=== PATIENT | female | born 1980 | race Caucasian/White ===

== ENCOUNTER 2016-05-31 02:42 | Emergency (ER) | payer SELFPAY ==
[2016-05-31 02:50] VITALS: TEMP 98.6
[2016-05-31] MEDS ORDERED: HYDROcodone/APAP 5-325MG 1 EACH TAB PO STA (02:56)
[2016-05-31] MEDS ORDERED: amLODIPine 5 MG TAB PO STA (02:56)
[2016-05-31] MEDS ORDERED: LISINOPRIL 10 MG TAB PO STA (02:56)
[2016-05-31] MEDS ORDERED: PENICILLIN V POTASSIUM 250 MG TAB PO STA (02:56)
--- NOTE | 2016-05-31 02:59 | ED ---
ENT HPI - General Chief complaint: ENT Stated complaint: Mouth Swelling/Hypertension Time Seen by Provider: 05/31/16 02:51 Source: patient, RN notes reviewed Mode of arrival: ambulatory Limitations: no limitations - History of Present Illness Initial comments: 36 year old female presents emergency Department with chief complaint of dental pain. Patient is to started yesterday progressively getting worse. Patient states in the left upper aspect. Patient denies fever, chills, facial swelling. Patient states that she took some ibuprofen with no relief. Patient states that she states did scheduled appointment with [facility] next week. Patient states she has NO KNOWN DRUG ALLERGIES. Patient states her blood pressure is elevated though she did not take her lisinopril 10 mg and Norvasc 5 mg at her nighttime dose. Patient denies any chest pain or shortness breath. - Related Data Home Medications Medication Instructions Recorded Confirmed ALPRAZolam [Xanax] 0.5 mg PO DAILY PRN 03/16/15 01/08/16 Norgestimate-Ethinyl Estradiol 1 tab PO DAILY 10/11/15 01/08/16 [Tri-Sprintec Tablet] Lisinopril [Zestril] 5 mg PO DAILY 01/08/16 01/08/16 Previous Rx's Medication Instructions Recorded Hydrocodone/Acetaminophen [[place] 2 each PO Q6HR PRN #20 tab 10/11/15 5-325] amLODIPine [Norvasc] 5 mg PO DAILY #7 tab 10/11/15 traMADol HCl [Ultram] 50 mg PO Q8HR PRN #12 tab 01/08/16 Hydrocodone/Acetaminophen [[place] 1 tab PO Q6HR PRN #20 tab 05/31/16 5-325] Penicillin V Potassium [Pen Vee K] 500 mg PO QID #40 tab 05/31/16 Allergies Allergy/AdvReac Type Severity Reaction Status Date / Time No Known Allergies Allergy Verified 05/31/16 02:50 Review of Systems ROS Statement: Those systems with pertinent positive or pertinent negative responses have been documented in the HPI. ROS Other: All systems not noted in ROS Statement are negative. Past Medical History Past Medical History: Hypertension Additional Past Medical History / Comment(s): back pain History of Any Multi-Drug Resistant Organisms: None Reported Past Surgical History: Cholecystectomy Past Psychological History: No Psychological Hx Reported Smoking Status: Current every day smoker Past Alcohol Use History: None Reported Past Drug Use History: None Reported General Exam Limitations: no limitations General appearance: alert, in no apparent distress Head exam: Present: atraumatic, normocephalic, normal inspection Eye exam: Present: normal appearance, PERRL, EOMI. Absent: scleral icterus, conjunctival injection, periorbital swelling ENT exam: Present: mucous membranes moist, TM's normal bilaterally, normal external ear exam. Absent: normal oropharynx (Edentulous, dental caries noted left upper no dental abscess) Neck exam: Present: normal inspection, full ROM. Absent: tenderness, meningismus, lymphadenopathy Respiratory exam: Present: normal lung sounds bilaterally. Absent: respiratory distress, wheezes, rales, rhonchi, stridor Cardiovascular Exam: Present: regular rate, normal rhythm, normal heart sounds. Absent: systolic murmur, diastolic murmur, rubs, gallop, clicks GI/Abdominal exam: Present: soft, normal bowel sounds. Absent: distended, tenderness, guarding, rebound, rigid Course Vital Signs 05/31/16 02:48 Temperature 98.6 F Pulse Rate 94 Respiratory 20 Rate Blood Pressure 207/120 O2 Sat by Pulse 100 Oximetry Medical Decision Making - Medical Decision Making 36-year-old female presented emergency department for dental pain. Patient we treated for dental infection. Patient has a follow-up appointment with [facility]. Patient we given blood pressure medication here in emergency department and will be discharged after. Return parameters were discussed. Disposition Clinical Impression: Pain, dental, Hypertension Disposition: HOME SELF-CARE Condition: Stable Instructions: Toothache (ED) Additional Instructions: Please return to the Emergency Department if symptoms worsen or any other concerns. Prescriptions: Hydrocodone/Acetaminophen [[place] 5-325] 1 tab PO Q6HR PRN #20 tab PRN Reason: Pain Penicillin V Potassium [Pen Vee K] 500 mg PO QID #40 tab Time of Disposition: 02:58
[2016-05-31 03:29] VITALS: BP 194/104; PULSE 85; RESP 18
== END 2016-05-31 03:29 | disposition home or self-care (01) ==
LOC: EC 02:42
DX: I10 Essential (primary) hypertension (principal); K08.89 Other specified disorders of teeth and supporting structures; F17.200 Nicotine dependence, unspecified, uncomplicated; Z79.3 Long term (current) use of hormonal contraceptives; Z79.899 Other long term (current) drug therapy
CPT/HCPCS: 99283

== ENCOUNTER 2016-08-25 23:14 | Emergency (ER) | payer OTHER ==
[2016-08-25 23:19] VITALS: RESP 18; TEMP 99
[2016-08-25] MEDS ORDERED: cloNIDine HCL 0.1 MG TAB PO STA (23:27)
[2016-08-25] MEDS ORDERED: KETOROLAC 60 MG/2 ML VIAL IM STA (23:27)
[2016-08-25] MEDS ORDERED: ORPHENADRINE 30 MG/ML 2 ML VIAL IM STA (23:27)
--- NOTE | 2016-08-25 23:42 | ED ---
Back Pain HPI - General Chief Complaint: Back Pain/Injury Stated Complaint: lower back pain, high BP Time Seen by Provider: 08/25/16 23:22 Source: patient, RN notes reviewed Limitations: no limitations - History of Present Illness Initial Comments: 36 yo female presents to the ER with cc of back pain. Patient does have chronic back pain. Patient also does suffer from hypertension and is currently out of one of her hypertensive medications. Patient states that she often is lifting up to 60 pounds when she picks up her son. Patient states her back pain just More intense in her at-home Motrin Tylenol was not helping so she thought that she should be seen. Patient states some pain gets so bad at all she down the legs. Patient states she has no loss of bowel or bladder. Patient states she was concerned due to the back pain so she thought that she should be evaluated.Patient denies any recent fever, chills, shortness of breath , chest pain, abdominal pain, nausea vomiting, numbness or tingling, dysuria or hematuria, constipation or diarrhea, headaches or visual changes, or any other current symptoms. - Related Data Home Medications Medication Instructions Recorded Confirmed ALPRAZolam [Xanax] 0.5 mg PO DAILY PRN 03/16/15 08/25/16 Norgestimate-Ethinyl Estradiol 1 tab PO DAILY 10/11/15 08/25/16 [Tri-Sprintec Tablet] Previous Rx's Medication Instructions Recorded amLODIPine [Norvasc] 5 mg PO DAILY #7 tab 10/11/15 Ibuprofen [Motrin] 600 mg PO Q6HR PRN #20 tab 08/26/16 Lisinopril [Zestril] 5 mg PO DAILY #30 tab 08/26/16 Orphenadrine [Norflex] 100 mg PO Q12H #10 tablet.er 08/26/16 Allergies Allergy/AdvReac Type Severity Reaction Status Date / Time No Known Allergies Allergy Verified 08/25/16 23:20 Review of Systems ROS Statement: Those systems with pertinent positive or pertinent negative responses have been documented in the HPI. ROS Other: All systems not noted in ROS Statement are negative. Past Medical History Past Medical History: Hypertension Additional Past Medical History / Comment(s): back pain History of Any Multi-Drug Resistant Organisms: None Reported Past Surgical History: Cholecystectomy Past Psychological History: No Psychological Hx Reported Smoking Status: Current every day smoker Past Alcohol Use History: None Reported Past Drug Use History: Marijuana General Exam Limitations: no limitations General appearance: alert, in no apparent distress Head exam: Present: atraumatic, normocephalic, normal inspection ENT exam: Present: normal exam, mucous membranes moist Neck exam: Present: normal inspection. Absent: tenderness, meningismus, lymphadenopathy Respiratory exam: Present: normal lung sounds bilaterally. Absent: respiratory distress, wheezes, rales, rhonchi, stridor Cardiovascular Exam: Present: regular rate, normal rhythm, normal heart sounds. Absent: systolic murmur, diastolic murmur, rubs, gallop, clicks Extremities exam: Present: normal inspection, full ROM, normal capillary refill. Absent: tenderness, pedal edema, joint swelling, calf tenderness Back exam: Present: normal inspection, full ROM. Absent: tenderness Neurological exam: Present: alert, oriented X3 Psychiatric exam: Present: normal affect, normal mood Skin exam: Present: warm, dry, intact, normal color. Absent: rash Course Vital Signs 08/25/16 08/25/16 08/26/16 23:18 23:59 00:34 Temperature 99 F Pulse Rate 89 88 87 Respiratory 18 18 18 Rate Blood Pressure 206/111 167/127 150/86 O2 Sat by Pulse 98 97 97 Oximetry Medical Decision Making - Medical Decision Making 36-year-old female emergency Department chief complaint of back pain. At this time patient's x-ray does not show any new acute process. She does state this is not like her chronic abdominal pain exacerbated by lifting her child. This time we discussed that we'll start her on Motrin and muscle relaxers for the pain. Patient was also found to be hypertensive at this time she did run out of one of her blood pressure medications. We did refill this for her. He did discuss close follow-up with her doctor and return parameters. Patient stated that she understood and all questions have been answered. She will be discharged home. - Radiology Data Radiology results: report reviewed, image reviewed Disposition Clinical Impression: Strain of lumbar region, Hypertension Disposition: HOME SELF-CARE Condition: Stable Instructions: Acute Low Back Pain (ED), Hypertension (ED) Additional Instructions: Please use medication as discussed. Please follow up with family doctor if symptoms have not improved over the next two days. Please return to the emergency room if your symptoms increase or worsen or for any other concerns. Prescriptions: Ibuprofen [Motrin] 600 mg PO Q6HR PRN #20 tab PRN Reason: Pain Lisinopril [Zestril] 5 mg PO DAILY #30 tab Orphenadrine [Norflex] 100 mg PO Q12H #10 tablet.er Referrals: Jonny Quinones DO [Primary Care Provider] - 1-2 days Time of Disposition: 00:50
--- NOTE | 2016-08-26 00:30 | XR ---
EXAM: XR Lumbar Spine, 2 or 3 Views CLINICAL HISTORY: Reason: Pain TECHNIQUE: Frontal and lateral views of the lumbar spine. COMPARISON: No relevant prior studies available. FINDINGS: Vertebrae: Unremarkable. No acute fracture. Normal alignment. Disc spaces: No acute findings. No significant narrowing. Soft tissues: Unremarkable. Other findings: Prior cholecystectomy. IMPRESSION: No acute or healing fracture or malalignment.
[2016-08-26 00:35] VITALS: BP 150/86; PULSE 87
== END 2016-08-26 00:57 | disposition home or self-care (01) ==
LOC: EC 23:14
DX: S39.012A Strain of muscle, fascia and tendon of lower back, initial encounter (principal); I10 Essential (primary) hypertension; F17.200 Nicotine dependence, unspecified, uncomplicated; Z79.3 Long term (current) use of hormonal contraceptives; X50.9XXA Other and unspecified overexertion or strenuous movements or postures, initial encounter
CPT/HCPCS: 72100; 99283; 96372 ×2; J2360; J1885

== ENCOUNTER 2016-09-25 09:41 | Emergency (ER) | payer SELFPAY ==
[2016-09-25 09:44] VITALS: BP 187/103; PULSE 94; RESP 20; TEMP 97.4
[2016-09-25] MEDS ORDERED: KETOROLAC 60 MG/2 ML VIAL IM STA (10:29)
--- NOTE | 2016-09-25 10:32 | ED ---
General Adult HPI - General Chief complaint: Back Pain/Injury Stated complaint: Oral and Back Pain Source: patient Mode of arrival: ambulatory Limitations: no limitations - History of Present Illness Initial comments: 36 yo female presenting for evaluation of back pain and tooth #13 pain. She states the back pain is chronic and unchanged but after losing her insurance she was unable to go back to her primary care physician and get another prescription for [place] which had previously been controlling her exacerbations. She states there is a presumed diagnosis of fibromyalgia but nothing definitive at this time. She denies any preceding trauma, illness, lower extremity weakness, saddle anesthesia, urinary incontinence/retention, or bowel incontinence. She also has a second complaint of tooth #13 pain after eating yesterday. She states that the tooth is fractured about one month ago but yesterday while eating a piece of food hit just the right spot causing significant pain. She states there was not a second fracture but that it was just very painful to that spot. Due to her lack of insurance she is also been unable to follow-up with a dentist as well. Denies any swelling, fevers, chills , fluctuant masses. - Related Data Home Medications Medication Instructions Recorded Confirmed ALPRAZolam [Xanax] 0.5 mg PO DAILY PRN 03/16/15 09/25/16 Norgestimate-Ethinyl Estradiol 1 tab PO DAILY 10/11/15 09/25/16 [Tri-Sprintec Tablet] Previous Rx's Medication Instructions Recorded amLODIPine [Norvasc] 5 mg PO DAILY #7 tab 10/11/15 Ibuprofen [Motrin] 600 mg PO Q6HR PRN #20 tab 08/26/16 Lisinopril [Zestril] 5 mg PO DAILY #30 tab 08/26/16 Diazepam [Valium] 5 mg PO BID #6 tab 09/25/16 HYDROcodone/APAP 5-325MG [[place] 1 - 2 tab PO Q12HR PRN #10 tab 09/25/16 5-325] Allergies Allergy/AdvReac Type Severity Reaction Status Date / Time No Known Allergies Allergy Verified 09/25/16 10:30 Review of Systems ROS Statement: Those systems with pertinent positive or pertinent negative responses have been documented in the HPI. ROS Other: All systems not noted in ROS Statement are negative. Constitutional: Denies: fever, chills Eyes: Denies: eye pain, eye discharge, vision change ENT: Reports: dental pain. Denies: ear pain, throat pain, hearing loss, epistaxis Respiratory: Denies: cough, dyspnea, wheezes, hemoptysis Cardiovascular: Denies: chest pain, palpitations Endocrine: Denies: fatigue, polydipsia, polyuria Gastrointestinal: Denies: abdominal pain, nausea, vomiting, diarrhea, constipation, hematemesis, melena, hematochezia Genitourinary: Denies: urgency, dysuria, frequency Musculoskeletal: Reports: back pain. Denies: joint swelling, arthralgia, myalgia Skin: Denies: rash, lesions Neurological: Denies: headache, weakness Psychiatric: Denies: anxiety, depression Hematological/Lymphatic: Denies: easy bleeding, easy bruising Past Medical History Past Medical History: Hypertension Additional Past Medical History / Comment(s): back pain History of Any Multi-Drug Resistant Organisms: None Reported Past Surgical History: Cholecystectomy Past Psychological History: No Psychological Hx Reported Smoking Status: Current every day smoker Past Alcohol Use History: None Reported Past Drug Use History: Marijuana General Exam Limitations: no limitations General appearance: alert, in no apparent distress Head exam: Present: atraumatic, normocephalic, normal inspection Eye exam: Present: normal appearance, PERRL, EOMI. Absent: scleral icterus, conjunctival injection, periorbital swelling ENT exam: Present: mucous membranes moist, other (poor dentition throughout; tooth #13 fracture, stable without purulence, swelling, or fluctuant mass) Neck exam: Present: normal inspection. Absent: tenderness, meningismus, lymphadenopathy Respiratory exam: Present: normal lung sounds bilaterally. Absent: respiratory distress, wheezes, rales, rhonchi, stridor Cardiovascular Exam: Present: regular rate, normal rhythm, normal heart sounds. Absent: systolic murmur, diastolic murmur, rubs, gallop, clicks GI/Abdominal exam: Present: soft, normal bowel sounds. Absent: distended, tenderness, guarding, rebound, rigid Rectal exam: Present: deferred Extremities exam: Present: normal inspection, full ROM, normal capillary refill. Absent: tenderness, pedal edema, joint swelling, calf tenderness Back exam: Present: full ROM, tenderness, paraspinal tenderness. Absent: CVA tenderness (R), CVA tenderness (L), vertebral tenderness Neurological exam: Present: alert, oriented X3, CN II-XII intact Psychiatric exam: Present: normal affect, normal mood Skin exam: Present: warm, dry, intact, normal color. Absent: rash Course Vital Signs 09/25/16 09:42 Temperature 97.4 F L Pulse Rate 94 Respiratory 20 Rate Blood Pressure 187/103 O2 Sat by Pulse 99 Oximetry Medical Decision Making - Medical Decision Making 36-year-old female presenting for evaluation of acute on chronic low back pain and tooth #13 dental pain. The back pain is consistent with her chronic levels pain although it slightly worse. She used to have [place] to control his pain but lost her insurance and no longer is able to get the [place]. On physical examination the back reveals no dermatologic abnormalities and she has full range of motion. Palpation causes mild pain. Given that there is no traumatic etiology to this and there are no other significant findings we'll provide pain control with follow-up with her primary care physician when she gets her insurance back which she states will be soon. Her second complaint of tooth #13 pain has been ongoing for the last month when the initial fracture occurred. She states it has been bothering her lately until she ate something last night which causes pain to the fracture site. She' s been unable to eat since then. On physical examination there is no fluctuant mass, purulent drainage from the fractured tooth, or surrounding swelling or erythema. Without any signs of infection we'll withhold antibiotics at this time. We'll provide pain control and instructed patient to follow-up with a dentist as she gets her insurance which she states will be very similar. Plans for both complaints were discussed with the patient. She acknowledged an understanding of all instructions given and agreed with this plan of care. Disposition Clinical Impression: Mechanical back pain, Tooth pain Disposition: HOME SELF-CARE Condition: Stable Instructions: Acute Low Back Pain (ED), Toothache (ED) Prescriptions: Diazepam [Valium] 5 mg PO BID #6 tab HYDROcodone/APAP 5-325MG [[place] 5-325] 1 - 2 tab PO Q12HR PRN #10 tab PRN Reason: Analgesia Referrals: Jonny Quinones DO [Primary Care Provider] - 1-2 days Time of Disposition: 10:32
== END 2016-09-25 10:42 | disposition home or self-care (01) ==
LOC: EC 09:41
DX: M54.5 Low back pain (principal); K08.89 Other specified disorders of teeth and supporting structures; F17.200 Nicotine dependence, unspecified, uncomplicated; Z79.3 Long term (current) use of hormonal contraceptives
CPT/HCPCS: 99283; 96372; J1885

== ENCOUNTER 2016-10-01 16:44 | Emergency (ER) | payer OTHER ==
[2016-10-01 16:52] VITALS: BP 186/98; PULSE 103; RESP 17; TEMP 97.6
[2016-10-01] MEDS ORDERED: HYDROcodone/APAP 5-325MG 1 EACH TAB PO STA (17:05)
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
== END 2016-10-01 17:20 | disposition home or self-care (01) ==
LOC: EC 16:44
DX: G89.29 Other chronic pain (principal); M54.5 Low back pain; F17.200 Nicotine dependence, unspecified, uncomplicated; Z79.3 Long term (current) use of hormonal contraceptives
CPT/HCPCS: 99283

== ENCOUNTER 2016-10-30 21:39 | Emergency (ER) | payer OTHER ==
[2016-10-30 21:48] VITALS: BP 163/87; PULSE 106; RESP 18; TEMP 98.1
[2016-10-30] MEDS ORDERED: PENICILLIN VK 500MG STARTER 4 TAB BTL PO STA (22:04)
[2016-10-30] MEDS ORDERED: ACET/COD 300 MG/30 MG STARTER PACK 6 TAB BTL PO STA (22:04)
--- NOTE | 2016-10-30 22:06 | ED ---
General Adult HPI - General Chief complaint: Dental/Oral Stated complaint: dental pain Time Seen by Provider: 10/30/16 21:50 Source: patient, RN notes reviewed Mode of arrival: ambulatory Limitations: no limitations - History of Present Illness Initial comments: Patient 36-year-old female who presents emergency room today with a chief complaint of possible dental abscess. She does admit that over the last few days she's been experiencing some pain to the left upper gumline. States more recently over the last day experiencing some pain now to the right lower side of the gumline. She states she can feel bump in this area. Denies any drainage or discharge. Sensation did have an abscess recently and she was on antibiotics of amoxicillin. She states she had some leftover amoxicillin which she began taking once again. Patient states she has been trying to get into the dentist but is saving up money. Patient denies any other complaints or associated symptoms currently. Patient denies any recent fever, chills, shortness of breath, chest pain, back pain, abdominal pain, nausea or vomiting, numbness or tingling, dysuria or hematuria, constipation or diarrhea, headaches or visual changes, or any other complaints. - Related Data Home Medications Medication Instructions Recorded Confirmed ALPRAZolam [Xanax] 0.5 mg PO DAILY PRN 03/16/15 09/25/16 Norgestimate-Ethinyl Estradiol 1 tab PO DAILY 10/11/15 09/25/16 [Tri-Sprintec Tablet] Previous Rx's Medication Instructions Recorded amLODIPine [Norvasc] 5 mg PO DAILY #7 tab 10/11/15 Ibuprofen [Motrin] 600 mg PO Q6HR PRN #20 tab 08/26/16 Lisinopril [Zestril] 5 mg PO DAILY #30 tab 08/26/16 Diazepam [Valium] 5 mg PO BID #6 tab 09/25/16 HYDROcodone/APAP 5-325MG [[place] 1 - 2 tab PO Q12HR PRN #10 tab 09/25/16 5-325] Penicillin V Potassium [Pen Vee K] 500 mg PO QID 10 Days 10/30/16 Allergies Allergy/AdvReac Type Severity Reaction Status Date / Time No Known Allergies Allergy Verified 10/30/16 21:48 Review of Systems ROS Statement: Those systems with pertinent positive or pertinent negative responses have been documented in the HPI. ROS Other: All systems not noted in ROS Statement are negative. Past Medical History Past Medical History: Hypertension Additional Past Medical History / Comment(s): back pain History of Any Multi-Drug Resistant Organisms: None Reported Past Surgical History: Cholecystectomy Past Psychological History: No Psychological Hx Reported Smoking Status: Current some day smoker Past Alcohol Use History: Rare Past Drug Use History: Marijuana General Exam - General Exam Comments Initial Comments: General: The patient is awake and alert, in no distress, and does not appear acutely ill. Eye: Pupils are equal, round and reactive to light, extra-ocular movements are intact. No nystagmus. There is normal conjunctiva bilaterally. No signs of icterus. Ears, nose, mouth and throat: There are moist mucous membranes and no oral lesions. Patient tender gumline and left upper side over tooth #13 and 14. Obvious abscess in this area. Patient does have abscess visualized at gumline of tooth #29. Uvula midline. Swallows without difficulty. Neck: The neck is supple, there is no tenderness or JVD. Cardiovascular: There is a regular rate and rhythm. No murmur, rub or gallop is appreciated. Respiratory: Lungs are clear to auscultation, respirations are non-labored, breath sounds are equal. No wheezes, stridor, rales, or rhonchi. Musculoskeletal: Normal ROM, no tenderness. Strength 5/5. Sensation intact. Pulses equal bilaterally 2+. Neurological: A&O x 3. CN II-XII intact, There are no obvious motor or sensory deficits. Coordination appears grossly intact. Speech is normal. Skin: Skin is warm and dry and no rashes or lesions are noted. Psychiatric: Cooperative, appropriate mood & affect, normal judgment. Limitations: no limitations Course Vital Signs 10/30/16 21:45 Temperature 98.1 F Pulse Rate 106 H Respiratory 18 Rate Blood Pressure 163/87 O2 Sat by Pulse 100 Oximetry Medical Decision Making - Medical Decision Making 18-gauge needle was used to make an incision of the abscess over the gumline of tooth #29 are mild drainage removed. Patient tolerated procedure well. Patient is advised to use Listerine or salt water gargles. Advised to use a tea bag in the gumline of these areas to help draw out more of the bacteria. Patient advised follow-up with dentist over the next 2 days. Will be continued on antibiotics of penicillin. Disposition Clinical Impression: Dental abscess Disposition: HOME SELF-CARE Condition: Good Instructions: Dental Abscess (ED) Additional Instructions: Please use antibiotic as prescribed. Please follow-up dentist over the next 2 days. Please use Listerine or salt water gargles as discussed. Please use teabag in the gumline to help draw out more bacteria. Please return to emergency room if any symptoms increase or worsen or for any other concerns. Prescriptions: Penicillin V Potassium [Pen Vee K] 500 mg PO QID 10 Days Referrals: Feliciano Wallis MD [Primary Care Provider] - 1-2 days Time of Disposition: 22:07
== END 2016-10-30 22:17 | disposition home or self-care (01) ==
LOC: EC 21:39
DX: K04.7 Periapical abscess without sinus (principal); F17.200 Nicotine dependence, unspecified, uncomplicated; Z79.899 Other long term (current) drug therapy
CPT/HCPCS: 41800; 99282

== ENCOUNTER 2016-12-08 19:37 | Emergency (ER) | payer SELFPAY ==
[2016-12-08] MEDS ORDERED: KETOROLAC 60 MG/2 ML VIAL IVP STA (20:00)
[2016-12-08] MEDS ORDERED: DIAZEPAM 5 MG/ML 2 ML SYRINGE IVP STA (20:00)
--- NOTE | 2016-12-08 20:04 | ED ---
General Adult HPI - General Chief complaint: Dizziness Stated complaint: Headache/body ache Time Seen by Provider: 12/08/16 19:45 Source: patient, RN notes reviewed Mode of arrival: ambulatory Limitations: no limitations - History of Present Illness Initial comments: This is a 36-year-old female who presents emergency department with past history significant for some bulging disks in her neck as well as fibromyalgia. Patient states today while at work she turned her head quickly to one side and she started having right-sided neck pain. Patient states she's had a headache all day but since she's had the neck pain seems to make the headache a little bit worse. Patient states there is nothing abnormal about this headache compared any previous headaches she's had. Patient denies any numbness weakness. Patient denies any central neck pain. Patient denies any blunt or direct trauma to the neck. Patient denies any other problems at this time. - Related Data Home Medications Medication Instructions Recorded Confirmed Gabapentin [Neurontin] 200 mg PO BID 12/08/16 12/08/16 Previous Rx's Medication Instructions Recorded amLODIPine [Norvasc] 5 mg PO DAILY #7 tab 10/11/15 Ibuprofen [Motrin] 600 mg PO Q6HR PRN #20 tab 08/26/16 Lisinopril [Zestril] 5 mg PO DAILY #30 tab 08/26/16 Cyclobenzaprine [Flexeril] 10 mg PO TID #20 tab 12/08/16 Ibuprofen [Motrin] 600 mg PO Q6HR PRN #20 tab 12/08/16 Allergies Allergy/AdvReac Type Severity Reaction Status Date / Time No Known Allergies Allergy Verified 12/08/16 19:51 Review of Systems ROS Statement: Those systems with pertinent positive or pertinent negative responses have been documented in the HPI. ROS Other: All systems not noted in ROS Statement are negative. Past Medical History Past Medical History: Hypertension Additional Past Medical History / Comment(s): back pain, migraines History of Any Multi-Drug Resistant Organisms: None Reported Past Surgical History: Cholecystectomy Past Psychological History: Anxiety Smoking Status: Current every day smoker Past Alcohol Use History: Rare Past Drug Use History: Marijuana General Exam - General Exam Comments Initial Comments: GENERAL: Patient is well-developed and well-nourished. Patient is nontoxic and well- hydrated and is in mild distress. ENT: Neck is soft and supple. No significant lymphadenopathy is noted. Oropharynx is clear. Moist mucous membranes. Neck has full range of motion without eliciting any pain. There is no thyroid enlargement and no masses were felt. EYES: The sclera were anicteric and conjunctiva were pink and moist. Extraocular movements were intact and pupils were equal round and reactive to light. Eyelids were unremarkable. Patient states her eyes are sensitive to light however I shined a bright light in her eyes to test extraocular motion she does not flinch. PULMONARY: Unlabored respirations. Good breath sounds bilaterally. No audible rales rhonchi or wheezing was noted. CARDIOVASCULAR: There is a regular rate and rhythm without any murmurs gallops or rubs. ABDOMEN: Soft and nontender with normal bowel sounds. No palpable organomegaly was noted. There is no palpable pulsatile mass. SKIN: Skin is clear with no lesions or rashes and otherwise unremarkable. NEUROLOGIC: Patient is alert and oriented x3. Cranial nerves II through XII are grossly intact. Motor and sensory are also intact. Normal speech, volume and content. Symmetrical smile. MUSCULOSKELETAL: Normal extremities with adequate strength and full range of motion. LYMPHATICS: No significant lymphadenopathy is noted PSYCHIATRIC: Normal psychiatric evaluation. Limitations: no limitations Course Vital Signs 12/08/16 12/08/16 12/08/16 19:43 20:00 20:32 Temperature 97.8 F 97.9 F Pulse Rate 88 99 78 Respiratory 16 18 18 Rate Blood Pressure 165/87 166/102 132/76 O2 Sat by Pulse 99 98 100 Oximetry Medical Decision Making - Medical Decision Making I went back to reevaluate the patient and the patient feeling considerably better. Patient blood pressure returned to normal. Patient stated her headache was much improved. And she felt as though her neck pain was improving but not back to normal yet. Disposition Clinical Impression: Acute cervical myofascial strain Disposition: HOME SELF-CARE Condition: Good Instructions: Cervical Strain (ED) Prescriptions: Cyclobenzaprine [Flexeril] 10 mg PO TID #20 tab Ibuprofen [Motrin] 600 mg PO Q6HR PRN #20 tab PRN Reason: For pain Referrals: Feliciano Wallis MD [Primary Care Provider] - 1-2 days Time of Disposition: 21:02
[2016-12-08 20:07] VITALS: TEMP 97.9
[2016-12-08 21:34] VITALS: BP 153/87; PULSE 79; RESP 16
== END 2016-12-08 22:14 | disposition home or self-care (01) ==
LOC: EC 19:37
DX: S16.1XXA Strain of muscle, fascia and tendon at neck level, initial encounter (principal); R51 Headache; R42 Dizziness and giddiness; F41.9 Anxiety disorder, unspecified; F17.200 Nicotine dependence, unspecified, uncomplicated; Z79.899 Other long term (current) drug therapy; X58.XXXA Exposure to other specified factors, initial encounter
CPT/HCPCS: 99283; 96374; 96375; J3360; J1885

== ENCOUNTER 2017-01-29 14:36 | Emergency (ER) | payer OTHER ==
[2017-01-29 14:45] VITALS: BP 147/80; PULSE 105; RESP 18; TEMP 97.9
--- NOTE | 2017-01-29 14:57 | ED ---
General Adult HPI - General Chief complaint: Dental/Oral Stated complaint: Dental Time Seen by Provider: 01/29/17 14:46 Source: patient, RN notes reviewed Mode of arrival: ambulatory Limitations: no limitations - History of Present Illness Initial comments: 37-year-old female presents to the emergency department with a chief complaint of dental abscess. Patient states this started yesterday. She states she has lower jaw pain and she doesn't abscess above her teeth. Patient denies any fever or chills. She states she has not been to the dentist. Patient was concerned due to her pain and the bottom so she thought that she should be evaluated. Patient denies any other symptoms at this time.Patient denies any recent fever, chills, shortness of breath, chest pain, back pain, abdominal pain , nausea vomiting, numbness or tingling, dysuria or hematuria, constipation or diarrhea, headaches or visual changes, or any other current symptoms. - Related Data Home Medications Medication Instructions Recorded Confirmed Gabapentin [Neurontin] 200 mg PO BID 12/08/16 12/08/16 Previous Rx's Medication Instructions Recorded amLODIPine [Norvasc] 5 mg PO DAILY #7 tab 10/11/15 Ibuprofen [Motrin] 600 mg PO Q6HR PRN #20 tab 08/26/16 Lisinopril [Zestril] 5 mg PO DAILY #30 tab 08/26/16 Cyclobenzaprine [Flexeril] 10 mg PO TID #20 tab 12/08/16 Ibuprofen [Motrin] 600 mg PO Q6HR PRN #20 tab 12/08/16 Penicillin V Potassium [Pen Vee K] 500 mg PO TID #40 tab 01/29/17 traMADol HCl [Ultram] 50 mg PO Q6H PRN #20 tab 01/29/17 Allergies Allergy/AdvReac Type Severity Reaction Status Date / Time No Known Allergies Allergy Verified 01/29/17 14:45 Review of Systems ROS Statement: Those systems with pertinent positive or pertinent negative responses have been documented in the HPI. ROS Other: All systems not noted in ROS Statement are negative. Past Medical History Past Medical History: Hypertension Additional Past Medical History / Comment(s): back pain, migraines History of Any Multi-Drug Resistant Organisms: None Reported Past Surgical History: Cholecystectomy Past Psychological History: Anxiety Smoking Status: Current every day smoker Past Alcohol Use History: Rare Past Drug Use History: Marijuana General Exam Limitations: no limitations General appearance: alert, in no apparent distress Head exam: Present: atraumatic, normocephalic, normal inspection Eye exam: Present: normal appearance, PERRL, EOMI. Absent: scleral icterus, conjunctival injection, periorbital swelling ENT exam: Present: normal exam, mucous membranes moist, other (dental abscess above tooth number 11) Neck exam: Present: normal inspection. Absent: tenderness, meningismus, lymphadenopathy Respiratory exam: Present: normal lung sounds bilaterally. Absent: respiratory distress, wheezes, rales, rhonchi, stridor Cardiovascular Exam: Present: regular rate, normal rhythm, normal heart sounds. Absent: systolic murmur, diastolic murmur, rubs, gallop, clicks Neurological exam: Present: alert, oriented X3 Psychiatric exam: Present: normal affect, normal mood Skin exam: Present: warm, dry, intact, normal color. Absent: rash Course Vital Signs 01/29/17 14:42 Temperature 97.9 F Pulse Rate 105 H Respiratory 18 Rate Blood Pressure 147/80 O2 Sat by Pulse 100 Oximetry Procedures - Procedures Initial comment: 18-gauge needle was used to excise the dental abscess. Some purulent material was drained. Patient tolerated well. Medical Decision Making - Medical Decision Making 37-year-old female presents emergency department with a chief complaint of what appears to be dental abscess. Patient underwent an I&D of the area. We discussed follow-up return parameters outpatient family's questions. They state [facility] management this plan. All questions have been answered. They will be discharged. Disposition Clinical Impression: Dental abscess Disposition: HOME SELF-CARE Condition: Stable Instructions: Dental Abscess (ED) Additional Instructions: Please use medication as discussed. Please follow up with family doctor if symptoms have not improved over the next two days. Please return to the emergency room if your symptoms increase or worsen or for any other concerns. [facility] [place] [address] [phone] (existing clients only) For new clients: [phone] 1st consult: $50 (includes Xrays) Usually 30% less then private dentist for visits after. [employer] Have to pay $50 for Xrays anmd rest is covered. [phone] Prescriptions: Penicillin V Potassium [Pen Vee K] 500 mg PO TID #40 tab traMADol HCl [Ultram] 50 mg PO Q6H PRN #20 tab PRN Reason: Pain Referrals: Eli Bar MD [STAFF PHYSICIAN] - 1-2 days Time of Disposition: 14:57
== END 2017-01-29 15:02 | disposition home or self-care (01) ==
LOC: EC 14:36
DX: K04.7 Periapical abscess without sinus (principal); F41.9 Anxiety disorder, unspecified; F17.200 Nicotine dependence, unspecified, uncomplicated; Z79.899 Other long term (current) drug therapy
CPT/HCPCS: 41800; 99282

== ENCOUNTER 2017-03-07 14:21 | Emergency (ER) | payer OTHER ==
[2017-03-07 14:30] VITALS: TEMP 98
[2017-03-07] MEDS ORDERED: KETOROLAC 30 MG/ML 1 ML VIAL IM STA (15:01)
[2017-03-07] MEDS ORDERED: ORPHENADRINE 30 MG/ML 2 ML VIAL IM STA (15:01)
--- NOTE | 2017-03-07 15:21 | ED ---
General Adult HPI - General Chief complaint: Back Pain/Injury Stated complaint: Back Pain Time Seen by Provider: 03/07/17 14:46 Source: patient, RN notes reviewed Mode of arrival: ambulatory Limitations: no limitations - History of Present Illness Initial comments: This is a 37-year-old female who presents to the emergency department with chief complaint of chronic back pain. Patient states that she has been without her medications for 1 week. She states she lost her insurance with Medicaid. Patient states that she normally takes [place] and gabapentin. She also reports that she takes amlodipine and lisinopril for hypertension. Patient reports she is having a current flare of low back and neck pain. She denies any new injury or trauma. She denies saddle paresthesias or loss of bladder or bowel function. Denies fever, chills, chest pain, shortness of breath, abdominal pain , nausea or vomiting, constipation or diarrhea, dysuria or hematuria, numbness or tingling, headache or vision changes. - Related Data Home Medications Medication Instructions Recorded Confirmed Gabapentin [Neurontin] 200 mg PO BID 12/08/16 12/08/16 Previous Rx's Medication Instructions Recorded amLODIPine [Norvasc] 5 mg PO DAILY #7 tab 10/11/15 Ibuprofen [Motrin] 600 mg PO Q6HR PRN #20 tab 08/26/16 Lisinopril [Zestril] 5 mg PO DAILY #30 tab 08/26/16 Cyclobenzaprine [Flexeril] 10 mg PO TID #20 tab 12/08/16 Ibuprofen [Motrin] 600 mg PO Q6HR PRN #20 tab 12/08/16 Penicillin V Potassium [Pen Vee K] 500 mg PO TID #40 tab 01/29/17 Lisinopril [Zestril] 5 mg PO DAILY #14 tab 03/07/17 amLODIPine [Norvasc] 5 mg PO DAILY #14 tab 03/07/17 traMADol HCl [Ultram] 50 mg PO Q6H PRN #20 tab 03/07/17 Allergies Allergy/AdvReac Type Severity Reaction Status Date / Time No Known Allergies Allergy Verified 03/07/17 14:30 Review of Systems ROS Statement: Those systems with pertinent positive or pertinent negative responses have been documented in the HPI. ROS Other: All systems not noted in ROS Statement are negative. Past Medical History Past Medical History: Hypertension Additional Past Medical History / Comment(s): back pain, migraines History of Any Multi-Drug Resistant Organisms: None Reported Past Surgical History: Cholecystectomy Past Psychological History: Anxiety Smoking Status: Current every day smoker Past Alcohol Use History: Rare Past Drug Use History: Marijuana General Exam - General Exam Comments Initial Comments: General: Awake and alert, well-developed; in no apparent distress. HEENT: Head atraumatic, normocephalic. Pupils are equal, round and reactive to light. Extraocular movements intact. Dentition is poor. Neck: Supple. Normal ROM. Tenderness on palpation of muscles along cervical spine. No bony point tenderness. Cardiovascular: Regular rate and rhythm. No murmurs, rubs or gallops. Chest symmetrical. Respiratory: Lungs clear to auscultation bilaterally. No wheezes, rales or rhonchi. Normal respiratory effort with no use of accessory muscles. Musculoskeletal: Patient is ambulating normally. There is tenderness on palpation of lumbar paraspinous muscles. No bony point tenderness. Sensation is intact. Patient has normal range of motion in cervical, thoracic and lumbar spine. Skin: [place], warm and dry without rashes or lesions. Neurological: Alert and oriented x3. CN II-XII grossly intact. Speech is fluent and answers are appropriate. No focal neuro deficits. Psychiatric: Normal mood and affect. No overt signs of depression or anxiety noted. Limitations: no limitations Course Vital Signs 03/07/17 14:28 Temperature 98.0 F Pulse Rate 102 H Respiratory 20 Rate Blood Pressure 151/83 O2 Sat by Pulse 99 Oximetry Medical Decision Making - Medical Decision Making This is a 37-year-old female who presents with chronic back pain. Patient requests refill for her medications. Patient was given Toradol and Norflex while in the emergency department. Patient will be discharged home with refills of only her hypertensive medications. Patient's blood pressure while in the emergency department was 151/83. Patient was informed she must seek care from primary care provider for refills of narcotics but I will provide her with a few days worth of Tramadol, which patient states is helpful as well. Patient is in no acute distress at this time. She is in agreement with the plan and voiced understanding. All questions were answered. Disposition Clinical Impression: Chronic back pain Disposition: HOME SELF-CARE Condition: Good Instructions: Chronic Back Pain (ED) Additional Instructions: Please take medications as prescribed. Please follow up with primary care provider within 1-2 days. Return to emergency department if symptoms should worsen or any concerns arise. Prescriptions: amLODIPine [Norvasc] 5 mg PO DAILY #14 tab Lisinopril [Zestril] 5 mg PO DAILY #14 tab traMADol HCl [Ultram] 50 mg PO Q6H PRN #20 tab PRN Reason: Pain Referrals: None,Stated [Primary Care Provider] - 1-2 days Time of Disposition: 15:24
[2017-03-07 15:33] VITALS: BP 135/90; PULSE 90; RESP 16
== END 2017-03-07 15:32 | disposition home or self-care (01) ==
LOC: EC 14:21
DX: G89.29 Other chronic pain (principal); M54.5 Low back pain; M54.2 Cervicalgia; F17.200 Nicotine dependence, unspecified, uncomplicated; Z79.899 Other long term (current) drug therapy
CPT/HCPCS: 99283; 96372 ×2; J2360; J1885

== ENCOUNTER 2017-04-27 07:07 | Emergency (ER) | payer OTHER ==
[2017-04-27 07:18] VITALS: BP 144/81
[2017-04-27] MEDS ORDERED: IBUPROFEN 800 MG TAB PO STA (08:19)
[2017-04-27] MEDS ORDERED: Acetaminophen-Codeine 300-30mg TAB PO STA (08:19)
[2017-04-27] MEDS ORDERED: ACETAMINOPHEN TAB 325 MG TAB PO STA (08:19)
[2017-04-27] MEDS ORDERED: FLUTICASONE 50MCG/SPRAY NASAL 16GM EA NOSTRIL STA (08:19)
--- NOTE | 2017-04-27 08:19 | ED ---
General Adult HPI - General Chief complaint: Upper Respiratory Infection Stated complaint: SOB/Cold Time Seen by Provider: 04/27/17 07:28 Source: patient, RN notes reviewed, old records reviewed Mode of arrival: ambulatory Limitations: no limitations - History of Present Illness Initial comments: This is a 37-year-old female to the ER for evaluation today. Patient comes in for female feelings of getting sick. Patient states she medical problems and medical history of getting chronically sick. Patient's cough runny nose congestion. Feels like she can't cough up mucus. Patient is a smoker no travel history no sick contacts or recent hospitalizations. Patient hasn't some body aches but also states that she does have fibromyalgia. No modifying factors for pain, no [id number] medications attempted. Patient states all members of her family are sick - Related Data Home Medications Medication Instructions Recorded Confirmed Gabapentin [Neurontin] 200 mg PO BID 12/08/16 12/08/16 Previous Rx's Medication Instructions Recorded amLODIPine [Norvasc] 5 mg PO DAILY #7 tab 10/11/15 Ibuprofen [Motrin] 600 mg PO Q6HR PRN #20 tab 08/26/16 Lisinopril [Zestril] 5 mg PO DAILY #30 tab 08/26/16 Cyclobenzaprine [Flexeril] 10 mg PO TID #20 tab 12/08/16 Ibuprofen [Motrin] 600 mg PO Q6HR PRN #20 tab 12/08/16 Penicillin V Potassium [Pen Vee K] 500 mg PO TID #40 tab 01/29/17 Lisinopril [Zestril] 5 mg PO DAILY #14 tab 03/07/17 amLODIPine [Norvasc] 5 mg PO DAILY #14 tab 03/07/17 traMADol HCl [Ultram] 50 mg PO Q6H PRN #20 tab 03/07/17 Amoxic-Pot Clav 875-125Mg 1 tab PO Q12HR #20 tablet 04/27/17 [Augmentin 875-125] Benzonatate [Tessalon Perles] 100 mg PO TID PRN #15 capsule 04/27/17 Levofloxacin [Levaquin] 750 mg PO DAILY #7 tab 04/27/17 Allergies Allergy/AdvReac Type Severity Reaction Status Date / Time No Known Allergies Allergy Verified 04/27/17 07:17 Review of Systems ROS Statement: Those systems with pertinent positive or pertinent negative responses have been documented in the HPI. ROS Other: All systems not noted in ROS Statement are negative. Past Medical History Past Medical History: Hypertension Additional Past Medical History / Comment(s): back pain, migraines History of Any Multi-Drug Resistant Organisms: None Reported Past Surgical History: Cholecystectomy Past Psychological History: Anxiety Smoking Status: Current every day smoker Past Alcohol Use History: Rare Past Drug Use History: Marijuana General Exam Limitations: no limitations General appearance: alert, in no apparent distress Head exam: Present: atraumatic, normocephalic, normal inspection Eye exam: Present: normal appearance, PERRL, EOMI. Absent: scleral icterus, conjunctival injection, periorbital swelling ENT exam: Present: mucous membranes moist. Absent: normal exam (Bilateral rhinitis) Neck exam: Present: normal inspection. Absent: tenderness, meningismus, lymphadenopathy Respiratory exam: Present: normal lung sounds bilaterally. Absent: respiratory distress, wheezes, rales, rhonchi, stridor Cardiovascular Exam: Present: regular rate, normal rhythm, normal heart sounds. Absent: systolic murmur, diastolic murmur, rubs, gallop, clicks GI/Abdominal exam: Present: soft, normal bowel sounds. Absent: distended, tenderness, guarding, rebound, rigid Extremities exam: Present: normal inspection, full ROM, normal capillary refill. Absent: tenderness, pedal edema, joint swelling, calf tenderness Back exam: Present: normal inspection Neurological exam: Present: alert, oriented X3, CN II-XII intact Psychiatric exam: Present: normal affect, normal mood Skin exam: Present: warm, dry, intact, normal color. Absent: rash Course Vital Signs 04/27/17 04/27/17 07:16 07:59 Temperature 98.4 F Pulse Rate 102 H Respiratory 20 20 Rate Blood Pressure 144/81 O2 Sat by Pulse 99 Oximetry - Reevaluation(s) Reevaluation #1: 04/27/17 08:18 Patient's in no acute distress no chest pain or shortness of breath Medical Decision Making - Medical Decision Making 37 female ER for evaluation of cough congestion upper for infection, sinusitis. X-rays negative for pneumonia fluid was negative and patient can be discharged home - Lab Data Lab Results 04/27/17 Range/Units 07:57 Influenza Type A RNA Not Detected (Not Detectd) Influenza Type B (PCR) Not Detected (Not Detectd) - Radiology Data Radiology results: report reviewed (Chest x-rays positive for pneumonia), image reviewed Disposition Clinical Impression: Community acquired pneumonia Disposition: HOME SELF-CARE Condition: Good Instructions: Community Acquired Pneumonia (ED) Prescriptions: Amoxic-Pot Clav 875-125Mg [Augmentin 875-125] 1 tab PO Q12HR #20 tablet Benzonatate [Tessalon Perles] 100 mg PO TID PRN #15 capsule PRN Reason: Cough Levofloxacin [Levaquin] 750 mg PO DAILY #7 tab Referrals: None,Stated [Primary Care Provider] - 1-2 days
--- NOTE | 2017-04-27 08:27 | XR ---
EXAMINATION TYPE: XR chest 2V DATE OF EXAM: 04/27/2017 COMPARISON: 01/08/2016 HISTORY: Cough TECHNIQUE: Frontal and lateral views of the chest are obtained. FINDINGS: There is a mild infiltrate in the lateral left lower lobe. The other lung castillo are clear . Heart and mediastinum are normal. There is no pleural effusion. Bony thorax appears normal. IMPRESSION: There is new small left lower lobe pneumonia compared to last exam.
[2017-04-27] MEDS ORDERED: LEVOFLOXACIN 750 MG TAB PO STA (08:29)
[2017-04-27 08:43] VITALS: PULSE 92; RESP 18; TEMP 98.7
== END 2017-04-27 08:43 | disposition home or self-care (01) ==
LOC: EC 07:07
DX: J18.9 Pneumonia, unspecified organism (principal); F17.200 Nicotine dependence, unspecified, uncomplicated; Z79.899 Other long term (current) drug therapy
CPT/HCPCS: 71020; 87502; 99284

== ENCOUNTER 2017-10-14 05:29 | Emergency (ER) | payer OTHER ==
[2017-10-14 05:35] VITALS: TEMP 98.2
--- NOTE | 2017-10-14 05:36 | ED ---
General Adult HPI - General Chief complaint: Eye Problems Stated complaint: Eye/Neck Pain Time Seen by Provider: 10/14/17 05:30 Source: patient, RN notes reviewed Mode of arrival: ambulatory Limitations: no limitations - History of Present Illness Initial comments: This is a 37-year-old female woke up this morning and had upper eyelid swelling bilaterally and lower eyelid swelling on the right. Patient states there is a sensation of pressure. No visual disturbance no redness of the eye no redness to the eyelids. Patient denies any itching. Patient states she has not happened to her eye she went to bed and he was fine she woke up with her swollen. Patient is also complaining about right trapezius muscle pain she states she went to bed she had no pain there when she woke up it's very sore to move and touch her trapezius muscle. - Related Data Home Medications Medication Instructions Recorded Confirmed Gabapentin [Neurontin] 200 mg PO BID 12/08/16 12/08/16 Previous Rx's Medication Instructions Recorded amLODIPine [Norvasc] 5 mg PO DAILY #7 tab 10/11/15 Ibuprofen [Motrin] 600 mg PO Q6HR PRN #20 tab 08/26/16 Lisinopril [Zestril] 5 mg PO DAILY #30 tab 08/26/16 Cyclobenzaprine [Flexeril] 10 mg PO TID #20 tab 12/08/16 Ibuprofen [Motrin] 600 mg PO Q6HR PRN #20 tab 12/08/16 Penicillin V Potassium [Pen Vee K] 500 mg PO TID #40 tab 01/29/17 Lisinopril [Zestril] 5 mg PO DAILY #14 tab 03/07/17 amLODIPine [Norvasc] 5 mg PO DAILY #14 tab 03/07/17 traMADol HCl [Ultram] 50 mg PO Q6H PRN #20 tab 03/07/17 Amoxic-Pot Clav 875-125Mg 1 tab PO Q12HR #20 tablet 04/27/17 [Augmentin 875-125] Benzonatate [Tessalon Perles] 100 mg PO TID PRN #15 capsule 04/27/17 Levofloxacin [Levaquin] 750 mg PO DAILY #7 tab 04/27/17 Cyclobenzaprine [Flexeril] 10 mg PO TID #20 tab 10/14/17 Ibuprofen [Motrin] 600 mg PO Q6HR PRN #20 tab 10/14/17 predniSONE 40 mg PO DAILY #8 tab 10/14/17 Allergies Allergy/AdvReac Type Severity Reaction Status Date / Time No Known Allergies Allergy Verified 10/14/17 05:34 Review of Systems ROS Statement: Those systems with pertinent positive or pertinent negative responses have been documented in the HPI. ROS Other: All systems not noted in ROS Statement are negative. Past Medical History Past Medical History: Hypertension Additional Past Medical History / Comment(s): back pain, migraines History of Any Multi-Drug Resistant Organisms: None Reported Past Surgical History: Cholecystectomy Past Psychological History: Anxiety Smoking Status: Current every day smoker Past Alcohol Use History: Rare Past Drug Use History: Marijuana General Exam - General Exam Comments Initial Comments: GENERAL: Patient is well-developed and well-nourished. Patient is nontoxic and well- hydrated and is in mild distress. ENT: Neck is soft and supple. No significant lymphadenopathy is noted. Oropharynx is clear. Moist mucous membranes. Neck has full range of motion without eliciting any pain. EYES: Bilateral eyelid swelling. Extraocular movements were intact and pupils were equal round and reactive to light. Conjunctiva is normal SKIN: Skin is clear with no lesions or rashes and otherwise unremarkable. NEUROLOGIC: Patient is alert and oriented x3. Cranial nerves II through XII are grossly intact. Motor and sensory are also intact. Normal speech, volume and content. Symmetrical smile. MUSCULOSKELETAL: Normal extremities with adequate strength and full range of motion. LYMPHATICS: No significant lymphadenopathy is noted PSYCHIATRIC: Normal psychiatric evaluation. Normal interpersonal interactions appears functionally intact in deals appropriately with others. No signs of depression. No signs of anxiety. Limitations: no limitations Course Vital Signs 10/14/17 10/14/17 05:32 05:48 Temperature 98.2 F Pulse Rate 90 88 Respiratory 17 18 Rate Blood Pressure 158/111 170/94 O2 Sat by Pulse 100 98 Oximetry Disposition Clinical Impression: Trapezius strain, Allergic reaction Disposition: HOME SELF-CARE Condition: Good Instructions: Angioedema (ED), General Allergic Reaction (ED) Prescriptions: Cyclobenzaprine [Flexeril] 10 mg PO TID #20 tab Ibuprofen [Motrin] 600 mg PO Q6HR PRN #20 tab PRN Reason: For pain predniSONE 40 mg PO DAILY #8 tab Is patient prescribed a controlled substance at d/c from ED?: No Referrals: None,Stated [Primary Care Provider] - 1-2 days Time of Disposition: 05:47
[2017-10-14] MEDS ORDERED: predniSONE 50 MG TAB PO STA (05:42)
[2017-10-14] MEDS ORDERED: KETOROLAC 60 MG/2 ML VIAL IM STA (05:42)
[2017-10-14 05:53] VITALS: BP 170/94; PULSE 88; RESP 18
== END 2017-10-14 05:59 | disposition home or self-care (01) ==
LOC: EC 05:29
DX: S46.811A Strain of other muscles, fascia and tendons at shoulder and upper arm level, right arm, initial encounter (principal); T78.40XA Allergy, unspecified, initial encounter; F41.9 Anxiety disorder, unspecified; F17.200 Nicotine dependence, unspecified, uncomplicated; Z79.899 Other long term (current) drug therapy; X58.XXXA Exposure to other specified factors, initial encounter
CPT/HCPCS: 99283; 96372; J1885; J7512

== ENCOUNTER 2017-11-12 13:04 | Emergency (ER) | payer OTHER ==
[2017-11-12 13:20] VITALS: RESP 18
[2017-11-12] MEDS ORDERED: HYDROcodone/APAP 5-325MG 1 EACH TAB PO STA (15:07)
--- NOTE | 2017-11-12 15:21 | ED ---
General Adult HPI - General Chief complaint: Back Pain/Injury Stated complaint: Back Pain Time Seen by Provider: 11/12/17 13:46 Source: patient Mode of arrival: ambulatory Limitations: no limitations - History of Present Illness Initial comments: This is a 37-year-old female past medical history of htn and chronic back pain who presents today for the chief complaint of increased low back pain times one day. Patient states that she woke up this morning with increasing low back pain from her baseline , states she thinks it is from Saturday evening when she was moving and her new home and moved a dresser. She does state that she had a previous her a desk for which she is followed by her primary provider. She takes tramadol at home the last dose being 6 hours ago, she states this did not help her pain today. She describes the pain as a dull low back pain without radiation that increases with forward bending. It is very similar to her chronic back pain is slightly increased in intensity. Patient denies any loss of bowel or bladder control, LE pain, muscle weakness, ataxia, loss of sensation in the legs or in her thighs. Patient presented to emergency department today hoping that we could do something for her pain. Patient presented to [facility] department with vital signs within normal limits. Patient denies any recent fever, chills, shortness of breath, chest pain, back pain, abdominal pain, nausea or vomiting, numbness or tingling, dysuria or hematuria, constipation or diarrhea, headaches or visual changes, or any other complaints. - Related Data Home Medications Medication Instructions Recorded Confirmed Gabapentin [Neurontin] 200 mg PO BID 12/08/16 11/12/17 Dextroamphetamine/Amphetamine 5 mg PO DAILY 11/12/17 11/12/17 [Adderall] Previous Rx's Medication Instructions Recorded Lisinopril [Zestril] 5 mg PO DAILY #14 tab 03/07/17 amLODIPine [Norvasc] 5 mg PO DAILY #14 tab 03/07/17 traMADol HCl [Ultram] 50 mg PO Q6H PRN #20 tab 03/07/17 Ibuprofen [Motrin] 600 mg PO Q6HR PRN #20 tab 10/14/17 predniSONE 20 mg PO DAILY #3 tab 11/12/17 Allergies Allergy/AdvReac Type Severity Reaction Status Date / Time No Known Allergies Allergy Verified 11/12/17 13:41 Review of Systems ROS Statement: Those systems with pertinent positive or pertinent negative responses have been documented in the HPI. ROS Other: All systems not noted in ROS Statement are negative. Constitutional: Denies: fever, chills Eyes: Denies: eye pain ENT: Denies: throat pain Respiratory: Denies: cough, dyspnea, wheezes, stridor Cardiovascular: Denies: chest pain, palpitations, edema Endocrine: Denies: fatigue Gastrointestinal: Denies: abdominal pain, nausea, vomiting, diarrhea, constipation, hematemesis, melena Genitourinary: Denies: urgency, dysuria, frequency, hematuria Musculoskeletal: Reports: as per HPI, back pain Skin: Denies: rash Neurological: Denies: headache, weakness, numbness, paresthesias, confusion, abnormal gait Past Medical History Past Medical History: Hypertension Additional Past Medical History / Comment(s): back pain, migraines History of Any Multi-Drug Resistant Organisms: None Reported Past Surgical History: Cholecystectomy Past Psychological History: Anxiety Smoking Status: Current every day smoker Past Alcohol Use History: Rare Past Drug Use History: Marijuana General Exam - General Exam Comments Initial Comments: General: The patient is awake and alert, in no distress, and does not appear acutely ill. Eye: Pupils are equal, round and reactive to light, extra-ocular movements are intact. No nystagmus. There is normal conjunctiva bilaterally. No signs of icterus. Ears, nose, mouth and throat: There are moist mucous membranes and no oral lesions. Neck: The neck is supple, there is no tenderness or JVD. Cardiovascular: There is a regular rate and rhythm. No murmur, rub or gallop is appreciated. Respiratory: Lungs are clear to auscultation, respirations are non-labored, breath sounds are equal. No wheezes, stridor, rales, or rhonchi. Gastrointestinal: [Soft, non-distended, non-tender abdomen without masses or organomegaly noted. There is no rebound or guarding present. No CVA tenderness. Bowel sounds are unremarkable.] Musculoskeletal: Normal ROM to flexion, extension and lateral flexion, 5/5 muscles strength of the lumbar and cervical spine. There is tenderness to palpation both paravertebral and midline of the lumbar spine. No tenderness of the cervical spine. Sensation intact of the UE/LE equally bilaterally including inner thighs. Pulses equal bilaterally 2+ DP, radial. +2 patellar and achilles DTR. She is able to heel and toe walk without difficulty, no gait abnormalities noted. Neurological: A&O x 3. CN II-XII intact, There are no obvious motor or sensory deficits. Coordination appears grossly intact. Speech is normal. Skin: Skin is warm and dry and no rashes or lesions are noted. Psychiatric: Cooperative, appropriate mood & affect, normal judgment. Limitations: no limitations Course Vital Signs 11/12/17 13:17 Temperature 98.2 F Pulse Rate 86 Respiratory 18 Rate Blood Pressure 163/106 O2 Sat by Pulse 100 Oximetry Medical Decision Making - Medical Decision Making This is a 37-year-old past medical history of chronic back pain and previous disc herniation of lumbar spine. Patient states that she was moving a dresser over the weekend and noticed increasing low back pain yesterday and today. Patient denies any neurological or sensory deficits of the lower extremities, no loss of bladder/bowel control. Patient states this feels similar to her chronic back pain increased intensity, no radiation and dull in nature. Physical examination reveals tenderness and paravertebral Muscles of the lumbar spine and midline tenderness to patient lumbar spine, however patient states that she has had pain to palpation midline since her disc herniation. Case is discussed Dr. Mir. Patient at this time feel x-rays lumbar spine are not warranted given no trauma or fall and previous history of chronic back pain. Pt received 5 mg [place] for pain management. Patient be discharged with a prescription for 20 mg prednisone once daily for 3 days, and follow-up with her primary care physician who is managing her chronic back pain for further pain management. She was instructed to return the emergency Department if symptoms worsen or change. Patient agreed with plan and was discharged in stable condition. Disposition Clinical Impression: Low back strain, Acute exacerbation of chronic low back pain Disposition: HOME SELF-CARE Condition: Good Instructions: Acute Low Back Pain (ED), Chronic Back Pain (ED) Additional Instructions: Please use medication as discussed. Please follow-up with family doctor in the next 2 days of symptoms have not improved. Please return to emergency room if the symptoms increase or worsen or for any other concerns. Prescriptions: predniSONE 20 mg PO DAILY #3 tab Is patient prescribed a controlled substance at d/c from ED?: No Referrals: None,Stated [Primary Care Provider] - 1-2 days Time of Disposition: 15:22
[2017-11-12 15:39] VITALS: BP 133/71; PULSE 65; TEMP 97.3
== END 2017-11-12 15:38 | disposition home or self-care (01) ==
LOC: EC 13:04
DX: S39.012A Strain of muscle, fascia and tendon of lower back, initial encounter (principal); F41.9 Anxiety disorder, unspecified; F17.200 Nicotine dependence, unspecified, uncomplicated; Z79.899 Other long term (current) drug therapy; X50.1XXA Overexertion from prolonged static or awkward postures, initial encounter; Y92.009 Unspecified place in unspecified non-institutional (private) residence as the place of occurrence of the external cause
CPT/HCPCS: 99283

== ENCOUNTER 2017-11-17 17:30 | Emergency (ER) | payer OTHER ==
[2017-11-17 17:47] VITALS: BP 172/95; PULSE 92; RESP 18; TEMP 98.1
[2017-11-17] MEDS ORDERED: PENICILLIN V POTASSIUM 250 MG TAB PO STA (17:52)
--- NOTE | 2017-11-17 17:59 | ED ---
ENT HPI - General Source: patient, RN notes reviewed Mode of arrival: ambulatory Limitations: no limitations <Rachel Galeas - Last Filed: 11/17/17 17:52> <Brandie Tong - Last Filed: 11/17/17 20:39> - General Chief complaint: Dental/Oral Stated complaint: dental pain Time Seen by Provider: 11/17/17 17:47 - History of Present Illness Initial comments: This is a 37-year-old female who presents to the emergency department with chief complaint of dental pain. Patient reports right upper and lower dental pain that began yesterday. She states that she felt a "bubble" along the right lower gumline. Patient states that she has been taking 800 mg of ibuprofen every 4 hours. Patient states that she recently got dental insurance so she will be contacting dentist tomorrow to set up an appointment. She denies fevers or chills. Denies radiation of pain to the neck. States that she is having difficulty eating due to the pain. Denies chest pain, shortness of breath , abdominal pain, nausea or vomiting, numbness or tingling, headache or vision changes. (Rachel Galeas) - Related Data Home Medications Medication Instructions Recorded Confirmed Gabapentin [Neurontin] 200 mg PO BID 12/08/16 11/17/17 Dextroamphetamine/Amphetamine 5 mg PO DAILY 11/12/17 11/17/17 [Adderall] Previous Rx's Medication Instructions Recorded Lisinopril [Zestril] 5 mg PO DAILY #14 tab 03/07/17 amLODIPine [Norvasc] 5 mg PO DAILY #14 tab 03/07/17 traMADol HCl [Ultram] 50 mg PO Q6H PRN #20 tab 03/07/17 Ibuprofen [Motrin] 600 mg PO Q6HR PRN #20 tab 10/14/17 Penicillin V Potassium [Pen Vee K] 500 mg PO QID 10 Days tab 11/17/17 Allergies Allergy/AdvReac Type Severity Reaction Status Date / Time No Known Allergies Allergy Verified 11/17/17 17:47 Review of Systems ROS Other: All systems not noted in ROS Statement are negative. <Rachel Galeas - Last Filed: 11/17/17 17:52> ROS Other: All systems not noted in ROS Statement are negative. <Brandie Tong - Last Filed: 11/17/17 20:39> ROS Statement: Those systems with pertinent positive or pertinent negative responses have been documented in the HPI. Past Medical History Past Medical History: Hypertension Additional Past Medical History / Comment(s): back pain, migraines History of Any Multi-Drug Resistant Organisms: None Reported Past Surgical History: Cholecystectomy Past Psychological History: Anxiety Smoking Status: Current every day smoker Past Alcohol Use History: Rare Past Drug Use History: Marijuana <Rachel Galeas - Last Filed: 11/17/17 17:52> General Exam Limitations: no limitations <Rachel Galeas - Last Filed: 11/17/17 17:52> <Brandie Tong - Last Filed: 11/17/17 20:39> - General Exam Comments Initial Comments: General: Awake and alert, well-developed; in no apparent distress. HEENT: Head atraumatic, normocephalic. Pupils are equal, round and reactive to light. Extraocular movements intact. Oropharynx moist without erythema or exudate. Poor dentition throughout with multiple fractured and missing teeth. There is tenderness along the gumline of teeth #4 and #29. No masses or areas of fluctuance noted. Neck: Supple. Normal ROM. Cardiovascular: Regular rate and rhythm. No murmurs, rubs or gallops. Chest symmetrical. Respiratory: Lungs clear to auscultation bilaterally. No wheezes, rales or rhonchi. Normal respiratory effort with no use of accessory muscles. Musculoskeletal: Normal ROM, no tenderness bilateral upper and lower extremities. Ambulating normally. Skin: [place], warm and dry without rashes or lesions. Neurological: Alert and oriented x3. CN II-XII grossly intact. Speech is fluent and answers are appropriate. No focal neuro deficits. Psychiatric: Normal mood and affect. No overt signs of depression or anxiety noted. (Rachel Galeas) Vital Signs 11/17/17 17:44 Temperature 98.1 F Pulse Rate 92 Respiratory 18 Rate Blood Pressure 172/95 O2 Sat by Pulse 98 Oximetry Medical Decision Making <Rachel Galeas - Last Filed: 11/17/17 17:52> <Brandie Tong - Last Filed: 11/17/17 20:39> - Medical Decision Making This is a 37-year-old female who presents to the emergency department with chief complaint of dental pain. Patient reports pain to the right upper and lower gumlines. She reports feeling a "bubble" along the right lower gumline. On physical examination, there is tenderness along the gumlines of teeth #4 and #29 however no abscesses are palpated. Patient denies any fevers or chills. She states she has been taking an excessive amount of ibuprofen and I recommended against this. Recommended only taking 600 mg of ibuprofen every 6 hours. Patient will be started on penicillin VK. Recommended calling dentists tomorrow to set up an appointment for further evaluation and treatment. Patient is in agreement with plan. Vital signs are stable and she is in no acute distress. She will be discharged home at this time. All questions were answered. (Rachel Galeas) The patient was seen and evaluated independently by the midlevel provider, I was present in the ER and available for consultation but was not asked to independently evaluate this patient. I agree with the midlevel evaluation and treatment as documented. (Brandie Tong) Disposition Is patient prescribed a controlled substance at d/c from ED?: No Time of Disposition: 17:59 <Rachel Galeas - Last Filed: 11/17/17 17:52> <Brandie Tong - Last Filed: 11/17/17 20:39> Clinical Impression: Dental caries, Toothache Disposition: HOME SELF-CARE Condition: Good Instructions: Dental Caries (ED), Toothache (ED) Additional Instructions: Please take medications as prescribed. Please only take 600 mg of ibuprofen every 6 hours as needed. As discussed, please contact a dentist tomorrow to set up an appointment for further evaluation and treatment. Please follow up with primary care provider within 1-2 days. Return to emergency department if symptoms should worsen or any concerns arise. Prescriptions: Penicillin V Potassium [Pen Vee K] 500 mg PO QID 10 Days tab Referrals: None,Stated [Primary Care Provider] - 1-2 days
== END 2017-11-17 18:15 | disposition home or self-care (01) ==
LOC: EC 17:30
DX: K02.9 Dental caries, unspecified (principal); K08.89 Other specified disorders of teeth and supporting structures; S02.5XXA Fracture of tooth (traumatic), initial encounter for closed fracture; F41.9 Anxiety disorder, unspecified; F17.200 Nicotine dependence, unspecified, uncomplicated; Z79.899 Other long term (current) drug therapy; X58.XXXA Exposure to other specified factors, initial encounter
CPT/HCPCS: 99282

== ENCOUNTER 2017-12-06 18:00 | Emergency (ER) | payer OTHER ==
[2017-12-06 18:26] VITALS: RESP 18
[2017-12-06] MEDS ORDERED: Acetaminophen-Codeine 300-30mg TAB PO STA (20:46)
--- NOTE | 2017-12-06 20:49 | ED ---
ENT HPI - General Chief complaint: Dental/Oral Stated complaint: dental pain Time Seen by Provider: 12/06/17 20:16 Source: patient, RN notes reviewed Mode of arrival: ambulatory Limitations: no limitations - History of Present Illness Initial comments: 37-year-old female presented emergency from for dental pain. Patient had increased pain last 3-4 days she did start taking some old antibiotics which have not helped. Patient states that she has multiple bad teeth/and left upper. She has not contacted a dentist. Patient has NO KNOWN DRUG ALLERGIES. Patient reports no fever no chills she does have mild facial swelling. - Related Data Home Medications Medication Instructions Recorded Confirmed Gabapentin [Neurontin] 200 mg PO BID 12/08/16 11/17/17 Dextroamphetamine/Amphetamine 5 mg PO DAILY 11/12/17 11/17/17 [Adderall] Previous Rx's Medication Instructions Recorded Lisinopril [Zestril] 5 mg PO DAILY #14 tab 03/07/17 amLODIPine [Norvasc] 5 mg PO DAILY #14 tab 03/07/17 traMADol HCl [Ultram] 50 mg PO Q6H PRN #20 tab 03/07/17 Ibuprofen [Motrin] 600 mg PO Q6HR PRN #20 tab 10/14/17 Penicillin V Potassium [Pen Vee K] 500 mg PO QID 10 Days tab 11/17/17 Acetaminophen-Codeine 300-30mg 1 tab PO Q4H PRN #12 tablet 12/06/17 [Tylenol #3] Clindamycin HCl 300 mg PO Q6HR #40 cap 12/06/17 Ibuprofen [Motrin] 600 mg PO Q8HR PRN #30 tab 12/06/17 Allergies Allergy/AdvReac Type Severity Reaction Status Date / Time No Known Allergies Allergy Verified 12/06/17 18:26 Review of Systems ROS Statement: Those systems with pertinent positive or pertinent negative responses have been documented in the HPI. ROS Other: All systems not noted in ROS Statement are negative. Past Medical History Past Medical History: Hypertension Additional Past Medical History / Comment(s): back pain, migraines History of Any Multi-Drug Resistant Organisms: None Reported Past Surgical History: Cholecystectomy Past Psychological History: Anxiety Smoking Status: Current every day smoker Past Alcohol Use History: Rare Past Drug Use History: Marijuana General Exam Limitations: no limitations General appearance: alert, in no apparent distress Head exam: Present: atraumatic, normocephalic, normal inspection ENT exam: Present: mucous membranes moist, TM's normal bilaterally, normal external ear exam. Absent: normal oropharynx (Edentulous, dental fracture left upper there is mild swelling mild erythema no drainable abscess) Neck exam: Present: normal inspection, full ROM. Absent: tenderness, meningismus, lymphadenopathy Respiratory exam: Present: normal lung sounds bilaterally. Absent: respiratory distress, wheezes, rales, rhonchi, stridor Cardiovascular Exam: Present: regular rate, normal rhythm, normal heart sounds. Absent: systolic murmur, diastolic murmur, rubs, gallop, clicks Course Vital Signs 12/06/17 18:22 Temperature 98.6 F Pulse Rate 93 Respiratory 18 Rate Blood Pressure 143/99 O2 Sat by Pulse 98 Oximetry Medical Decision Making - Medical Decision Making 37-year-old female presented for dental pain. Patient has dental fracture dental infection should be started on clindamycin, Tylenol codeine and ibuprofen. She is advised follow-up with dentist on Saturday return for any worsening symptoms. Disposition Clinical Impression: Fracture of tooth, Dental infection Disposition: HOME SELF-CARE Condition: Stable Instructions: Dental Abscess (ED) Additional Instructions: Please return to the Emergency Department if symptoms worsen or any other concerns. Prescriptions: Acetaminophen-Codeine 300-30mg [Tylenol #3] 1 tab PO Q4H PRN #12 tablet PRN Reason: pain Clindamycin HCl 300 mg PO Q6HR #40 cap Ibuprofen [Motrin] 600 mg PO Q8HR PRN #30 tab PRN Reason: Pain Is patient prescribed a controlled substance at d/c from ED?: Yes When asked, does pt state using other controlled substances?: No If prescribed controlled substance>3 days was MAPS reviewed?: Prescribed <3 Days If opioid is for acute pain is fill amount 7 days or less?: Yes If Rx opioid, was Start Talking consent form obtained?: Yes Referrals: None,Stated [Primary Care Provider] - 1-2 days Time of Disposition: 20:49
[2017-12-06 21:06] VITALS: BP 174/87; PULSE 67; TEMP 97.9
== END 2017-12-06 21:04 | disposition home or self-care (01) ==
LOC: EC 18:00
DX: K04.7 Periapical abscess without sinus (principal); S02.5XXA Fracture of tooth (traumatic), initial encounter for closed fracture; K08.409 Partial loss of teeth, unspecified cause, unspecified class; F41.9 Anxiety disorder, unspecified; F17.200 Nicotine dependence, unspecified, uncomplicated; Z79.899 Other long term (current) drug therapy; X58.XXXA Exposure to other specified factors, initial encounter
CPT/HCPCS: 99282

== ENCOUNTER 2018-03-23 07:39 | Emergency (ER) | payer OTHER ==
[2018-03-23 07:44] VITALS: BP 154/93; PULSE 80; RESP 16; TEMP 98.4
--- NOTE | 2018-03-23 08:01 | ED ---
General Adult HPI - General Chief complaint: ENT Stated complaint: jaw pain Time Seen by Provider: 03/23/18 07:46 Source: patient, RN notes reviewed Mode of arrival: ambulatory Limitations: no limitations - History of Present Illness Initial comments: Patient is a 38-year-old female presenting to the emergency room today with a chief complaint of neck and jaw pain that started proxy 4 AM. Patient states that she woke up at 4 AM from sleeping with pain on the right side of her neck and greater on the right side of the jaw. Patient does admit that the pain is worse with movement. She states she rotates her head to the left pain increases and also she opens and close the jaw pain is worse. Patient does admit that she tried Tylenol and her Neurontin this morning. Does admit to history of chronic neck pain but states this is worse. Denies any known injury or trauma. Patient admits that her body feels achy and bruised from the waist up. Patient denies any recent fever, chills, shortness of breath, chest pain, back pain, abdominal pain, nausea or vomiting, numbness or tingling, headaches or visual changes, or any other complaints. - Related Data Home Medications Medication Instructions Recorded Confirmed Gabapentin [Neurontin] 200 mg PO BID 12/08/16 03/23/18 Lisinopril [Zestril] 10 mg PO DAILY 12/06/17 03/23/18 traMADol HCl [Ultram] 50 mg PO BID PRN 12/06/17 03/23/18 Dextroamphetamine/Amphetamine 10 mg PO DAILY 03/23/18 03/23/18 [Adderall] Previous Rx's Medication Instructions Recorded amLODIPine [Norvasc] 5 mg PO DAILY #14 tab 03/07/17 Cyclobenzaprine [Flexeril] 10 mg PO TID #20 tab 03/23/18 Ibuprofen [Motrin] 600 mg PO Q6HR PRN #40 day 03/23/18 Allergies Allergy/AdvReac Type Severity Reaction Status Date / Time No Known Allergies Allergy Verified 03/23/18 09:07 Review of Systems ROS Statement: Those systems with pertinent positive or pertinent negative responses have been documented in the HPI. ROS Other: All systems not noted in ROS Statement are negative. Past Medical History Past Medical History: Hypertension Additional Past Medical History / Comment(s): back pain, migraines History of Any Multi-Drug Resistant Organisms: None Reported Past Surgical History: Cholecystectomy Past Psychological History: Anxiety Smoking Status: Current every day smoker Past Alcohol Use History: Rare Past Drug Use History: Marijuana General Exam - General Exam Comments Initial Comments: General: The patient is awake and alert, in no distress, and does not appear acutely ill. Eye: Pupils are equal, round and reactive to light. Extra-ocular movements are intact. No nystagmus. There is normal conjunctiva bilaterally. No signs of icterus. Ears, nose, mouth and throat: There are moist mucous membranes and no oral lesions. TMs clear bilaterally. Neck: The neck is supple, there is no tenderness or JVD. Cardiovascular: There is a regular rate and rhythm. No murmur, rub or gallop is appreciated. Respiratory: Lungs are clear to auscultation, respirations are non-labored, breath sounds are equal. No wheezes, stridor, rales, or rhonchi. Gastrointestinal: Soft, non-distended, non-tender abdomen without masses or organomegaly noted. There is no rebound or guarding present. No CVA tenderness. Musculoskeletal: Patient shows good range of motion. No cervical, thoracic or lumbar spine tenderness. Paravertebral tenderness on cervical spine both left and right. Pain reproduced with rotation to the left of the cervical spine. Sensation intact. Strength 5/5. Pulses equal bilaterally 2+. Neurological: A&O x 3. CN II-XII intact, There are no obvious motor or sensory deficits. Coordination appears grossly intact. Speech is normal. Skin: Skin is warm and dry and no rashes or lesions are noted. Psychiatric: Cooperative, appropriate mood & affect, normal judgment. Limitations: no limitations Course Vital Signs 03/23/18 07:42 Temperature 98.4 F Pulse Rate 80 Respiratory 16 Rate Blood Pressure 154/93 O2 Sat by Pulse 100 Oximetry EKG Findings - EKG Comments: EKG Findings:: EKG performed at 0802: Physical sinus rhythm at 76 bpm. NH interval 134. QRS is 88. QT/QTc 400/450. No acute ST changes. Medical Decision Making - Medical Decision Making Patient's x-rays negative for any acute abdomen. Labs been reviewed. Patient was reevaluated at this time and she was sleeping room. She does admit that pain is improving. Oral. Patient's symptoms are felt to be consistent with muscular skeletal. Will be continued to be treated with anti-inflammatories, muscle relaxer. She is advised that most rash or may make her drowsy. She is advised follow-up with family doctor in the next 2 days return symptoms increase or worsen. - Lab Data Result diagrams: 03/23/18 08:17 03/23/18 08:17 Lab Results 03/23/18 03/23/18 03/23/18 Range/Units 08:17 08:17 08:17 WBC 9.0 (3.8-10.6) k/uL RBC 4.17 (3.80-5.40) m/uL Hgb 12.2 (11.4-16.0) gm/dL Hct 36.1 (34.0-46.0) % MCV 86.7 (80.0-100.0) fL MCH 29.2 (25.0-35.0) pg MCHC 33.7 (31.0-37.0) g/dL RDW 11.8 (11.5-15.5) % Plt Count 351 (150-450) k/uL Neutrophils % 64 % Lymphocytes % 28 % Monocytes % 5 % Eosinophils % 1 % Basophils % 0 % Neutrophils # 5.8 (1.3-7.7) k/uL Lymphocytes # 2.5 (1.0-4.8) k/uL Monocytes # 0.5 (0-1.0) k/uL Eosinophils # 0.1 (0-0.7) k/uL Basophils # 0.0 (0-0.2) k/uL PT (9.0-12.0) sec INR (<1.2) APTT (22.0-30.0) sec Sodium 141 (137-145) mmol/L Potassium 4.3 (3.5-5.1) mmol/L Chloride 109 H (98-107) mmol/L Carbon Dioxide 25 (22-30) mmol/L Anion Gap 7 mmol/L BUN 7 (7-17) mg/dL Creatinine 0.62 (0.52-1.04) mg/dL Est GFR (CKD-EPI)AfAm >90 (>60 ml/min/1.73 sqM) Est GFR (CKD-EPI)NonAf >90 (>60 ml/min/1.73 sqM) Glucose 98 (74-99) mg/dL Calcium 9.4 (8.4-10.2) mg/dL Total Bilirubin 0.3 (0.2-1.3) mg/dL AST 24 (14-36) U/L ALT 34 (9-52) U/L Alkaline Phosphatase 63 (38-126) U/L Total Creatine Kinase 68 (30-135) U/L CK-MB (CK-2) 0.4 (0.0-2.4) ng/mL CK-MB (CK-2) Rel Index 0.6 Troponin I <0.012 (0.000-0.034) ng/mL Total Protein 6.6 (6.3-8.2) g/dL Albumin 3.9 (3.5-5.0) g/dL Urine Color Urine Appearance (Clear) Urine pH (5.0-8.0) Ur Specific [place] (1.001-1.035) Urine Protein (Negative) Urine Glucose (UA) (Negative) Urine Ketones (Negative) Urine Blood (Negative) Urine Nitrite (Negative) Urine Bilirubin (Negative) Urine Urobilinogen (<2.0) mg/dL Ur Leukocyte Esterase (Negative) Urine RBC (0-5) /hpf Urine WBC (0-5) /hpf Ur Squamous Epith Cells (0-4) /hpf Urine Bacteria (None) /hpf Urine Mucus (None) /hpf Urine HCG, Qual (Not Detectd) 03/23/18 03/23/18 03/23/18 Range/Units 08:17 08:19 08:19 WBC (3.8-10.6) k/uL RBC (3.80-5.40) m/uL Hgb (11.4-16.0) gm/dL Hct (34.0-46.0) % MCV (80.0-100.0) fL MCH (25.0-35.0) pg MCHC (31.0-37.0) g/dL RDW (11.5-15.5) % Plt Count (150-450) k/uL Neutrophils % % Lymphocytes % % Monocytes % % Eosinophils % % Basophils % % Neutrophils # (1.3-7.7) k/uL Lymphocytes # (1.0-4.8) k/uL Monocytes # (0-1.0) k/uL Eosinophils # (0-0.7) k/uL Basophils # (0-0.2) k/uL PT 10.2 (9.0-12.0) sec INR 1.0 (<1.2) APTT 24.1 (22.0-30.0) sec Sodium (137-145) mmol/L Potassium (3.5-5.1) mmol/L Chloride (98-107) mmol/L Carbon Dioxide (22-30) mmol/L Anion Gap mmol/L BUN (7-17) mg/dL Creatinine (0.52-1.04) mg/dL Est GFR (CKD-EPI)AfAm (>60 ml/min/1.73 sqM) Est GFR (CKD-EPI)NonAf (>60 ml/min/1.73 sqM) Glucose (74-99) mg/dL Calcium (8.4-10.2) mg/dL Total Bilirubin (0.2-1.3) mg/dL AST (14-36) U/L ALT (9-52) U/L Alkaline Phosphatase (38-126) U/L Total Creatine Kinase (30-135) U/L CK-MB (CK-2) (0.0-2.4) ng/mL CK-MB (CK-2) Rel Index Troponin I (0.000-0.034) ng/mL Total Protein (6.3-8.2) g/dL Albumin (3.5-5.0) g/dL Urine Color Yellow Urine Appearance Cloudy H (Clear) Urine pH 7.5 (5.0-8.0) Ur Specific [place] 1.014 (1.001-1.035) Urine Protein Negative (Negative) Urine Glucose (UA) Negative (Negative) Urine Ketones Negative (Negative) Urine Blood Negative (Negative) Urine Nitrite Negative (Negative) Urine Bilirubin Negative (Negative) Urine Urobilinogen <2.0 (<2.0) mg/dL Ur Leukocyte Esterase Negative (Negative) Urine RBC 2 (0-5) /hpf Urine WBC 2 (0-5) /hpf Ur Squamous Epith Cells 1 (0-4) /hpf Urine Bacteria Rare H (None) /hpf Urine Mucus Few H (None) /hpf Urine HCG, Qual Not Detected (Not Detectd) Disposition Clinical Impression: Neck strain Disposition: HOME SELF-CARE Condition: Good Instructions: Cervical Strain (ED) Additional Instructions: Please use medication as discussed. Please be aware that muscle relaxant may make you drowsy. Please follow-up with family doctor in the next 2 days of symptoms have not improved. Please return to emergency room if the symptoms increase or worsen or for any other concerns. Prescriptions: Cyclobenzaprine [Flexeril] 10 mg PO TID #20 tab Ibuprofen [Motrin] 600 mg PO Q6HR PRN #40 day PRN Reason: Pain Is patient prescribed a controlled substance at d/c from ED?: No Referrals: None,Stated [Primary Care Provider] - 1-2 days Francia Boateng MD [STAFF PHYSICIAN] - 1-2 days Time of Disposition: 09:50
[2018-03-23] MEDS ORDERED: KETOROLAC 30 MG/ML 1 ML VIAL IVP STA (08:06)
[2018-03-23] MEDS ORDERED: SODIUM CHLORIDE 0.9% 1,000 ML IV STA (08:06)
[2018-03-23 08:40] LABS: Basophils % (A) 0 %; Eosinophils # (A) 0.1 k/uL (0-0.7); Eosinophils % (A) 1 %; HCT 36.1 % (34.0-46.0); HGB 12.2 gm/dL (11.4-16.0); Lymphocytes # (A) 2.5 k/uL (1.0-4.8); Lymphocytes % (A) 28 %; MCH 29.2 pg (25.0-35.0); MCHC 33.7 g/dL (31.0-37.0); MCV 86.7 fL (80.0-100.0); Monocytes # (A) 0.5 k/uL (0-1.0); Monocytes % (A) 5 %; Neutrophils # (A) 5.8 k/uL (1.3-7.7); Neutrophils % (A) 64 %; Platelet Count 351 k/uL (150-450); RBC 4.17 m/uL (3.80-5.40); RDW 11.8 % (11.5-15.5)
[2018-03-23 08:44] LABS: Partial Thromboplastin Time 24.1 sec (22.0-30.0); Prothrombin Time 10.2 sec (9.0-12.0)
[2018-03-23 08:44] LABS: Appearance,Urine Cloudy (Clear); Bacteria,Urine Rare /hpf; Bilirubin,Urine Negative (Negative); Blood,Urine Negative (Negative); Color,Urine Yellow; Glucose,Urine (UA) Negative (Negative); Ketones,Urine Negative (Negative); Leukocyte Esterase,Urine Negative (Negative); Mucus,Urine Few /hpf; Nitrite,Urine Negative (Negative); PH, Urine 7.5 (5.0-8.0); Protein,Urine Negative (Negative); RBC,Urine 2 /hpf (0-5); Specific Gravity,Urine 1.014 (1.001-1.035); Squamous Epithelial Cell,Urine 1 /hpf (0-4); Urobilinogen,Urine <2.0 mg/dL (<2.0)
--- NOTE | 2018-03-23 08:58 | XR ---
EXAMINATION TYPE: XR chest 2V DATE OF EXAM: 03/23/2018 COMPARISON: 04/27/2017 HISTORY: Chest pain TECHNIQUE: Frontal and lateral views of the chest are obtained. FINDINGS: There is no focal air space opacity. No evidence for pneumothorax. No pleural effusion. The cardiac silhouette size is within normal limits. The osseous structures are grossly intact. IMPRESSION: 1. No acute cardiopulmonary process.
[2018-03-23 09:04] LABS: Creatine Kinase 68 U/L (30-135)
[2018-03-23 09:13] LABS: ALT 34 U/L (9-52); AST 24 U/L (14-36); Albumin 3.9 g/dL (3.5-5.0); Alkaline Phosphatase 63 U/L (38-126); Anion Gap 7 mmol/L; Blood Urea Nitrogen 7 mg/dL (7-17); Calcium 9.4 mg/dL (8.4-10.2); Carbon Dioxide 25 mmol/L (22-30); Chloride 109 mmol/L (98-107); Glucose 98 mg/dL (74-99); Potassium 4.3 mmol/L (3.5-5.1); Sodium 141 mmol/L (137-145); Total Bilirubin 0.3 mg/dL (0.2-1.3); Total Protein 6.6 g/dL (6.3-8.2)
[2018-03-23 09:17] LABS: Creatine Kinase MB 0.4 ng/mL (0.0-2.4); Troponin I <0.012 ng/mL (0.000-0.034)
== END 2018-03-23 10:09 | disposition home or self-care (01) ==
LOC: EC 07:39
DX: S16.1XXA Strain of muscle, fascia and tendon at neck level, initial encounter (principal); R68.84 Jaw pain; I10 Essential (primary) hypertension; F41.9 Anxiety disorder, unspecified; F17.200 Nicotine dependence, unspecified, uncomplicated; Z90.49 Acquired absence of other specified parts of digestive tract; Z79.899 Other long term (current) drug therapy; X58.XXXA Exposure to other specified factors, initial encounter
CPT/HCPCS: 36415; 93005; 80053; 82550; 82553; 84484; 85025; 85610; 85730; 81001; 81025; 71046; 99284; 96374; 96361 ×2; J1885

== ENCOUNTER 2018-06-15 11:59 | Emergency (ER) | payer OTHER ==
--- NOTE | 2018-06-15 12:44 | ED ---
URI HPI - General Chief Complaint: Upper Respiratory Infection Stated Complaint: High BP Time Seen by Provider: 06/15/18 12:26 Source: patient, RN notes reviewed Mode of arrival: ambulatory Limitations: no limitations - History of Present Illness Initial Comments: 30-year-old female presents emergency Department chief complaint of not feeling well. Patient states she just felt sick last few days she states her son was sick with some her symptoms though he has improved. Patient was at work states that she felt very achy has had a cough is nonproductive. Patient states that she also had some nausea which has resulted no vomiting no diarrhea no constipation or chest pain or shortness of breath. Patient has not taken any recent Tylenol Motrin. Patient states that she her blood pressure was elevated at work so the symptoms emergency department. Patient states that her blood pressure is normal. She does take medications for it - Related Data Home Medications Medication Instructions Recorded Confirmed traMADol HCl [Ultram] 50 mg PO BID PRN 12/06/17 06/15/18 Blood Pressure (Unknown) 1 tab PO DAILY 06/15/18 06/15/18 Cholecalciferol [Vitamin D3] 5,000 unit PO DAILY 06/15/18 06/15/18 Dextroamphetamine/Amphetamine 30 mg PO DAILY 06/15/18 06/15/18 [Adderall] Gabapentin [Neurontin] 300 mg PO TID 06/15/18 06/15/18 Loratadine 10 mg PO DAILY 06/15/18 06/15/18 Norgestimate-Ethinyl Estradiol 1 tab PO DAILY 06/15/18 06/15/18 [Tri-Sprintec Tablet] Allergies Allergy/AdvReac Type Severity Reaction Status Date / Time No Known Allergies Allergy Verified 06/15/18 12:59 Review of Systems ROS Statement: Those systems with pertinent positive or pertinent negative responses have been documented in the HPI. ROS Other: All systems not noted in ROS Statement are negative. Past Medical History Past Medical History: Hypertension Additional Past Medical History / Comment(s): back pain, migraines History of Any Multi-Drug Resistant Organisms: None Reported Past Surgical History: Cholecystectomy Past Psychological History: Anxiety Smoking Status: Current every day smoker Past Alcohol Use History: Rare Past Drug Use History: Marijuana General Exam Limitations: no limitations General appearance: alert, in no apparent distress Head exam: Present: atraumatic, normocephalic, normal inspection Eye exam: Present: normal appearance, PERRL, EOMI. Absent: scleral icterus, conjunctival injection, periorbital swelling ENT exam: Present: normal exam, normal oropharynx, mucous membranes moist Neck exam: Present: normal inspection, full ROM. Absent: tenderness, meningismus, lymphadenopathy Respiratory exam: Present: normal lung sounds bilaterally. Absent: respiratory distress, wheezes, rales, rhonchi, stridor Cardiovascular Exam: Present: regular rate, normal rhythm, normal heart sounds. Absent: systolic murmur, diastolic murmur, rubs, gallop, clicks GI/Abdominal exam: Present: soft, normal bowel sounds. Absent: distended, tenderness, guarding, rebound, rigid Neurological exam: Present: alert, oriented X3, CN II-XII intact Skin exam: Present: warm, dry, intact, normal color. Absent: rash Course Vital Signs 06/15/18 12:21 Temperature 98.4 F Pulse Rate 96 Respiratory 16 Rate Blood Pressure 137/92 O2 Sat by Pulse 100 Oximetry Medical Decision Making - Medical Decision Making 38-year-old female presents from for cough congestion body aches. Influenza negative, chest x-ray unremarkable. Patient is a viral URI. Patient's blood pressures is unremarkable and which concerns with. Patient will be discharged at this time with close follow-up. - Lab Data Lab Results 06/15/18 Range/Units 13:00 Influenza Type A RNA Not Detected (Not Detectd) Influenza Type B (PCR) Not Detected (Not Detectd) Disposition Clinical Impression: Viral infection Disposition: HOME SELF-CARE Condition: Stable Instructions (If sedation given, give patient instructions): Upper Respiratory Infection (ED) Additional Instructions: Please return to the Emergency Department if symptoms worsen or any other concerns. Is patient prescribed a controlled substance at d/c from ED?: No Referrals: None,Stated [Primary Care Provider] - 1-2 days Time of Disposition: 13:50
--- NOTE | 2018-06-15 13:16 | XR ---
EXAMINATION TYPE: XR chest 2V DATE OF EXAM: 06/15/2018 COMPARISON: 03/23/2018 HISTORY: 38-year-old female with cough and pain TECHNIQUE: PA and lateral views FINDINGS: Heart is normal size. Aorta and pulmonary vasculature within normal limits. No consolidation or pleur al effusion. IMPRESSION: No acute cardiopulmonary process.
[2018-06-15 14:00] VITALS: BP 147/90; PULSE 83; RESP 20; TEMP 98.2
== END 2018-06-15 14:00 | disposition home or self-care (01) ==
LOC: EC 11:59
DX: J06.9 Acute upper respiratory infection, unspecified (principal); R11.0 Nausea; I10 Essential (primary) hypertension; F17.200 Nicotine dependence, unspecified, uncomplicated; Z79.3 Long term (current) use of hormonal contraceptives; Z79.899 Other long term (current) drug therapy; Z86.69 Personal history of other diseases of the nervous system and sense organs
CPT/HCPCS: 71046; 87502; 99283

== ENCOUNTER 2018-09-07 09:32 | Emergency (ER) | payer OTHER ==
[2018-09-07] MEDS ORDERED: KETOROLAC 30 MG/ML 1 ML VIAL IM STA (09:53)
[2018-09-07] MEDS ORDERED: DIAZEPAM 5 MG/ML 2 ML INJ IM ONE (09:53)
--- NOTE | 2018-09-07 10:05 | ED ---
General Adult HPI - General Chief complaint: Extremity Problem,Nontraumatic Stated complaint: chest pain Time Seen by Provider: 09/07/18 09:44 Source: patient, RN notes reviewed, old records reviewed Mode of arrival: wheelchair Limitations: no limitations - History of Present Illness Initial comments: 38 -year-old female presenting for evaluation of right shoulder pain. Patient woke with severe right shoulder pain, worse with any movement of the neck or right arm. Denies any specific injury. No chest pain. No abdominal pain. Previous cholecystectomy. No fever or chills. She does states she is breathing fast but believes this is secondary to pain. - Related Data Home Medications Medication Instructions Recorded Confirmed Gabapentin [Neurontin] 300 mg PO TID 06/15/18 09/07/18 Loratadine 10 mg PO DAILY 06/15/18 09/07/18 Dextroamphetamine/Amphetamine 20 mg PO BID 09/07/18 09/07/18 [Adderall] Lisinopril [Prinivil] 10 mg PO DAILY 09/07/18 09/07/18 Tri-Loida 1 tab PO DAILY@1800 09/07/18 09/07/18 amLODIPine [Norvasc] 5 mg PO HS 09/07/18 09/07/18 traMADol HCL [Ultram] 50 mg PO BID 09/07/18 09/07/18 Previous Rx's Medication Instructions Recorded Ibuprofen [Motrin] 600 mg PO Q8HR PRN #24 tab 09/07/18 Allergies Allergy/AdvReac Type Severity Reaction Status Date / Time No Known Allergies Allergy Verified 09/07/18 10:23 Review of Systems ROS Statement: Those systems with pertinent positive or pertinent negative responses have been documented in the HPI. ROS Other: All systems not noted in ROS Statement are negative. Past Medical History Past Medical History: Hypertension Additional Past Medical History / Comment(s): back pain, migraines History of Any Multi-Drug Resistant Organisms: None Reported Past Surgical History: Cholecystectomy Past Psychological History: Anxiety Smoking Status: Current every day smoker Past Alcohol Use History: Rare Past Drug Use History: Marijuana General Exam Limitations: no limitations General appearance: alert, in no apparent distress Head exam: Present: atraumatic, normocephalic Eye exam: Present: normal appearance, PERRL, EOMI ENT exam: Present: normal exam Neck exam: Present: normal inspection, tenderness (Right paraspinal and right trapezius tenderness palpation with muscle spasm). Absent: meningismus Respiratory exam: Present: normal lung sounds bilaterally. Absent: respiratory distress, wheezes, rales Cardiovascular Exam: Present: regular rate, normal rhythm GI/Abdominal exam: Present: soft. Absent: distended, tenderness, guarding Extremities exam: Present: normal inspection, normal capillary refill, other (Tenderness over the right AC joint). Absent: full ROM (Decreased range of motion right shoulder secondary to significant pain. Muscle spasm over the right trapezius. No skin changing, no erythema, no induration, distal pulses intact, normal computer game tester strength), pedal edema Neurological exam: Present: alert, oriented X3 Psychiatric exam: Present: normal affect, normal mood Skin exam: Present: warm, dry, intact. Absent: cyanosis, diaphoretic Course Vital Signs 09/07/18 09:36 Temperature 98.1 F Pulse Rate 99 Respiratory 16 Rate Blood Pressure 162/98 O2 Sat by Pulse 100 Oximetry Medical Decision Making - Medical Decision Making 38-year-old female presenting with right shoulder pain. Patient has decreased range of motion secondary to pain, she has tenderness over the acromioclavicular joint on the right. Denies injury or overuse. She has normal strength in the right upper extremity, normal pulse exam.. No external signs of trauma with no signs of infection. X-rays obtained, does show concern for grade 1 or grade 2 AC operation. Patient is given Valium and Toradol in the emergency department. On reevaluation she hasn't improved range of motion and symptoms are significantly improved. Will be discharged home, instructed to apply ice, anti- inflammatories. Disposition Clinical Impression: Shoulder strain, Muscle spasm Disposition: HOME SELF-CARE Condition: Good Instructions (If sedation given, give patient instructions): Acromioclavicular Separation (ED), Shoulder Sprain (ED) Prescriptions: Ibuprofen [Motrin] 600 mg PO Q8HR PRN #24 tab PRN Reason: Pain Is patient prescribed a controlled substance at d/c from ED?: No Referrals: None,Stated [Primary Care Provider] - 1-2 days Keo Gupta MD [STAFF PHYSICIAN] - 1-2 days Time of Disposition: 10:58
--- NOTE | 2018-09-07 10:15 | XR ---
EXAMINATION TYPE: XR shoulder complete RT , 3 VIEWS DATE OF EXAM ORDERED: 09/07/2018 HISTORY: Pain. COMPARISON: None. FINDINGS: No fracture or dislocation is seen. The coracoclavicular distance is slightly increased at 13 mm. Upper limits of normal in females 11 mm. IMPRESSION: 1. NO ACUTE OSSEOUS LESION. 2. I COULD NOT EXCLUDE A GRADE 1 OR GRADE 2 AC SEPARATION.
[2018-09-07 11:09] VITALS: BP 136/86; PULSE 77; RESP 18; TEMP 98.2
== END 2018-09-07 11:09 | disposition home or self-care (01) ==
LOC: EC 09:32
DX: S46.911A Strain of unspecified muscle, fascia and tendon at shoulder and upper arm level, right arm, initial encounter (principal); M62.838 Other muscle spasm; I10 Essential (primary) hypertension; F17.200 Nicotine dependence, unspecified, uncomplicated; Z79.899 Other long term (current) drug therapy; Z90.49 Acquired absence of other specified parts of digestive tract; X58.XXXA Exposure to other specified factors, initial encounter
CPT/HCPCS: 73030; 99284; 96372 ×2; J3360; J1885

== ENCOUNTER 2019-11-19 17:51 | Emergency (ER) | payer OTHER ==
[2019-11-19 18:16] VITALS: RESP 18; TEMP 98.5
[2019-11-19] MEDS ORDERED: MORPHINE SULFATE 4 MG/ML SYRINGE IM STA (19:20)
[2019-11-19] MEDS ORDERED: KETOROLAC 30 MG/ML 1 ML VIAL IM STA (19:20)
--- NOTE | 2019-11-19 19:59 | XR ---
PROCEDURE: XR shoulder complete RT - 3V DATE AND TIME: 11/19/2019 7:28 PM CLINICAL INDICATION: PHH; Shoulder pain TECHNIQUE: Department protocol COMPARISON: 09/07/2018 FINDINGS: There is no fracture or malalignment. The soft tissues are unremarkable. IMPRESSION: No acute radiographic process; stable radiographic appearance.
--- NOTE | 2019-11-19 20:01 | ED ---
Upper Extremity HPI - General Chief Complaint: Extremity Injury, Upper Stated Complaint: shoulder pain Time Seen by Provider: 11/19/19 19:02 Source: patient Mode of arrival: ambulatory Limitations: no limitations - History of Present Illness Initial Comments: 39-year-old female patient presents to the emergency department today for evaluation of right shoulder pain. Patient states that for the last week she has been having significant pain to the right shoulder. Denies any pain radiation down the arm. States she is having some elbow discomfort with it. Denies numbness or tingling to the hand or fingers. 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 Patient states that the pain is making it difficult for her to sleep that she has been very fatigued. She denies any chest pain or shortness of breath. Denies any upper back pain. Denies dizziness, weakness, fever, or chills. Denies any history of shoulder discomfort or injury. Patient denies any headache, neck pain, chest pain, shortness of breath, dizziness, weakness, abdominal pain, nausea, vomiting, or difficulties with bowel movements or urination. - Related Data Home Medications Medication Instructions Recorded Confirmed Gabapentin [Neurontin] 300 mg PO TID 06/15/18 09/07/18 Loratadine 10 mg PO DAILY 06/15/18 09/07/18 Dextroamphetamine/Amphetamine 20 mg PO BID 09/07/18 09/07/18 [Adderall] Lisinopril [Prinivil] 10 mg PO DAILY 09/07/18 09/07/18 Tri-Loida 1 tab PO DAILY@1800 09/07/18 09/07/18 amLODIPine [Norvasc] 5 mg PO HS 09/07/18 09/07/18 traMADol HCL [Ultram] 50 mg PO BID 09/07/18 09/07/18 Previous Rx's Medication Instructions Recorded Ibuprofen [Motrin] 600 mg PO Q8HR PRN #24 tab 09/07/18 Cyclobenzaprine [Flexeril] 10 mg PO TID #15 tab 11/19/19 Ibuprofen [Motrin] 600 mg PO Q8HR PRN #30 tab 11/19/19 amLODIPine [Norvasc] 5 mg PO DAILY #14 tab 11/19/19 Allergies Allergy/AdvReac Type Severity Reaction Status Date / Time No Known Allergies Allergy Verified 11/19/19 18:16 Review of Systems ROS Statement: Those systems with pertinent positive or pertinent negative responses have been documented in the HPI. ROS Other: All systems not noted in ROS Statement are negative. Past Medical History Past Medical History: Hypertension Additional Past Medical History / Comment(s): back pain, migraines History of Any Multi-Drug Resistant Organisms: None Reported Past Surgical History: Cholecystectomy Past Psychological History: Anxiety Smoking Status: Current every day smoker Past Alcohol Use History: Rare Past Drug Use History: Marijuana General Exam Limitations: no limitations General appearance: alert, in no apparent distress, other (This is a well- developed, well-nourished adult female patient in no acute distress. Vital signs upon presentation are temperature 98.5F, pulse 92, respirations 18, blood pressure 178/123, pulse ox 99% on room air) Respiratory exam: Present: normal lung sounds bilaterally. Absent: respiratory distress, wheezes, rales, rhonchi, stridor Cardiovascular Exam: Present: regular rate, normal rhythm, normal heart sounds. Absent: systolic murmur, diastolic murmur, rubs, gallop, clicks Extremities exam: Present: normal inspection, normal capillary refill, other (Skin to the right upper extremity is pink, warm, dry. Cap refills less than 3 seconds. Radial pulses are 2+ and equal bilaterally. Patient exhibits forward flexion up to approximately 90, Abduction at 90, and is unable to put her hand behind her back. She is able to touch her opposite shoulder). Absent: full ROM (Diminished range of motion due to increased pain with), tenderness, pedal edema, joint swelling, calf tenderness Neurological exam: Present: alert, oriented X3, CN II-XII intact Psychiatric exam: Present: normal affect, normal mood Skin exam: Present: warm, dry, intact, normal color. Absent: rash Course Vital Signs 11/19/19 11/19/19 18:12 20:13 Temperature 98.5 F Pulse Rate 92 67 Respiratory 18 18 Rate Blood Pressure 178/123 196/95 O2 Sat by Pulse 99 100 Oximetry Medical Decision Making - Medical Decision Making 39-year-old female patient presents to the emergency department today for evaluation of right shoulder pain, fatigue, stress. Physical examination did reveal normal neurovascular status to the right shoulder. There is limited range of motion due to increased pain with movement. X-rays were obtained and were negative. Patient symptoms are consistent with a strain of the right shoulder, possibly rotator cuff injury. She'll be given anti-inflammatories and muscle relaxers. She is instructed follow up with orthopedics for further evaluation. Patient's blood pressure was elevated while in the department, states she is a history of high blood pressure but she has not had to take medication for the last year. Repeat blood pressure remained elevated so we did give a 5 mg Norvasc, did sent 2 weeks worth to her pharmacy so she has time to follow-up with her primary care physician. If she gets dizzy or feels faint she is instructed to stop the medication. Return parameters were discussed in detail. She verbalizes understanding and agrees this plan. - Radiology Data Radiology results: report reviewed, image reviewed 3 views of the right shoulder obtained. Report was reviewed in its entirety. Impression by Dr. Juno Dyson shows no acute radiographic process; stable radiographic appearance. Disposition Clinical Impression: Right shoulder strain Disposition: HOME SELF-CARE Condition: Good Instructions (If sedation given, give patient instructions): Rotator Cuff Injury (ED) Additional Instructions: Take medications as directed. Follow-up with the primary care physician for recheck in one to days. Follow-up with orthopedics as needed. Return to the emergency department immediately for any new, worsening, or concerning symptoms Prescriptions: Cyclobenzaprine [Flexeril] 10 mg PO TID #15 tab Ibuprofen [Motrin] 600 mg PO Q8HR PRN #30 tab PRN Reason: Pain amLODIPine [Norvasc] 5 mg PO DAILY #14 tab Is patient prescribed a controlled substance at d/c from ED?: No Referrals: Jovany Carey MD [Primary Care Provider] - 1-2 days Keo Gupta MD [STAFF PHYSICIAN] - 1-2 days Time of Disposition: 20:26
[2019-11-19 20:14] VITALS: BP 196/95
[2019-11-19] MEDS ORDERED: amLODIPine 5 MG TAB PO STA ×2 (20:26→21:07)
[2019-11-19 21:15] VITALS: PULSE 70
== END 2019-11-19 21:14 | disposition home or self-care (01) ==
LOC: EC 17:51
DX: S46.911A Strain of unspecified muscle, fascia and tendon at shoulder and upper arm level, right arm, initial encounter (principal); I10 Essential (primary) hypertension; F17.200 Nicotine dependence, unspecified, uncomplicated; Z79.899 Other long term (current) drug therapy; X58.XXXA Exposure to other specified factors, initial encounter
CPT/HCPCS: 73030; 99283; 96372 ×2; J2270; J1885

== ENCOUNTER 2020-01-09 16:44 | Emergency (ER) | payer OTHER ==
[2020-01-09 16:49] VITALS: TEMP 98.2
[2020-01-09] MEDS ORDERED: diphenhydrAMINE 50 MG/ML 1 ML VIAL IVP STA (17:06)
[2020-01-09] MEDS ORDERED: ORPHENADRINE 30 MG/ML 2 ML VIAL IVP STA (17:06)
[2020-01-09] MEDS ORDERED: METOCLOPRAMIDE 5 MG/ML 2 ML VIAL IVP STA (17:06)
[2020-01-09] MEDS ORDERED: SODIUM CHLORIDE 0.9% 1,000 ML IV STA ×2 (17:06)
[2020-01-09 17:29] VITALS: RESP 18
[2020-01-09 17:31] LABS: Basophils % (A) 0 %; Eosinophils # (A) 0.1 k/uL (0-0.7); Eosinophils % (A) 1 %; HCT 40.2 % (34.0-46.0); HGB 13.4 gm/dL (11.4-16.0); Lymphocytes # (A) 1.9 k/uL (1.0-4.8); Lymphocytes % (A) 16 %; MCHC 33.2 g/dL (31.0-37.0); MCV 87.1 fL (80.0-100.0); Mean Platelet Volume 7.2; Monocytes # (A) 0.3 k/uL (0-1.0); Monocytes % (A) 3 %; Neutrophils # (A) 9.4 k/uL (1.3-7.7); Neutrophils % (A) 79 %; Platelet Count 466 k/uL (150-450); RBC 4.61 m/uL (3.80-5.40); RDW 12.1 % (11.5-15.5); WBC 11.8 k/uL (3.8-10.6)
--- NOTE | 2020-01-09 17:34 | ED ---
Headache HPI - General Chief Complaint: Headache Stated Complaint: headache, vomiting Time Seen by Provider: 01/09/20 16:55 Source: RN notes reviewed, old records reviewed Mode of arrival: ambulatory Limitations: no limitations - History of Present Illness Initial Comments: 39-year-old female presents return to wait of a headache. Patient reports that it started around 11:00 today. She states that she went up to go to the bathroom and had onset of a headache and complained of vomiting associated with this. Patient reports that she does have history of hypertension but has not been compliant taking medications in the past few months. Denies any fevers or chills. She denies any abdominal pain or chest pain shortness of breath. She reports her headache seems worse with bright lights. She does report she has history of migraines feels similar more severe than previous migraines. - Related Data Home Medications Medication Instructions Recorded Confirmed Gabapentin [Neurontin] 300 mg PO TID 06/15/18 09/07/18 Loratadine 10 mg PO DAILY 06/15/18 09/07/18 Dextroamphetamine/Amphetamine 20 mg PO BID 09/07/18 09/07/18 [Adderall] Lisinopril [Prinivil] 10 mg PO DAILY 09/07/18 09/07/18 Tri-Loida 1 tab PO DAILY@1800 09/07/18 09/07/18 amLODIPine [Norvasc] 5 mg PO HS 09/07/18 09/07/18 traMADol HCL [Ultram] 50 mg PO BID 09/07/18 09/07/18 Previous Rx's Medication Instructions Recorded Ibuprofen [Motrin] 600 mg PO Q8HR PRN #24 tab 09/07/18 Cyclobenzaprine [Flexeril] 10 mg PO TID #15 tab 11/19/19 Ibuprofen [Motrin] 600 mg PO Q8HR PRN #30 tab 11/19/19 amLODIPine [Norvasc] 5 mg PO DAILY #14 tab 11/19/19 Ondansetron Odt [Zofran Odt] 4 mg PO Q8HR PRN #12 tab 01/09/20 Allergies Allergy/AdvReac Type Severity Reaction Status Date / Time No Known Allergies Allergy Verified 01/09/20 16:49 Review of Systems ROS Statement: Those systems with pertinent positive or pertinent negative responses have been documented in the HPI. ROS Other: All systems not noted in ROS Statement are negative. Past Medical History Past Medical History: Hypertension Additional Past Medical History / Comment(s): back pain, migraines History of Any Multi-Drug Resistant Organisms: None Reported Past Surgical History: Cholecystectomy Past Psychological History: Anxiety Smoking Status: Current every day smoker Past Alcohol Use History: Rare Past Drug Use History: Marijuana General Exam - General Exam Comments Initial Comments: 39-year-old female. No acute distress. Limitations: no limitations General appearance: alert, in no apparent distress Head exam: Present: atraumatic, normocephalic, normal inspection Eye exam: Present: normal appearance, PERRL, EOMI. Absent: scleral icterus, conjunctival injection, periorbital swelling ENT exam: Present: normal exam, mucous membranes moist Neck exam: Present: normal inspection. Absent: tenderness, meningismus, lymphadenopathy Respiratory exam: Present: normal lung sounds bilaterally. Absent: respiratory distress, wheezes, rales, rhonchi, stridor Cardiovascular Exam: Present: regular rate, normal rhythm, normal heart sounds. Absent: systolic murmur, diastolic murmur, rubs, gallop, clicks GI/Abdominal exam: Present: soft, normal bowel sounds. Absent: distended, tenderness, guarding, rebound, rigid Course Vital Signs 01/09/20 01/09/20 01/09/20 16:47 17:28 18:11 Temperature 98.2 F Pulse Rate 85 81 77 Respiratory 16 18 18 Rate Blood Pressure 197/101 180/120 174/94 O2 Sat by Pulse 99 97 Oximetry 01/09/20 01/09/20 18:54 19:10 Temperature 98.2 F Pulse Rate 88 88 Respiratory 18 18 Rate Blood Pressure 171/93 171/93 O2 Sat by Pulse 97 97 Oximetry Medical Decision Making - Medical Decision Making 39-year-old female presenting today with a acute headache as well as vomiting. She is on be hypertensive upon arrival. She is given IV fluids migraine cocktail. Blood pressure did decrease somewhat after. She is given CT brain without and with contrast. No evidence of bleeding or aneurysm. Patient was reevaluated after migraine cocktail does feel improved. I discussed the Patient needs to follow-up with PCP in regards to high blood pressure. Discussed return parameters. - Lab Data Result diagrams: 01/09/20 17:22 01/09/20 17:22 Lab Results 0901/09/20 01/09/20 Range/Units 17:22 17:22 17:22 WBC 11.8 H (3.8-10.6) k/uL RBC 4.61 (3.80-5.40) m/uL Hgb 13.4 (11.4-16.0) gm/dL Hct 40.2 (34.0-46.0) % MCV 87.1 (80.0-100.0) fL MCH 29.0 (25.0-35.0) pg MCHC 33.2 (31.0-37.0) g/dL RDW 12.1 (11.5-15.5) % Plt Count 466 H (150-450) k/uL Neutrophils % 79 % Lymphocytes % 16 % Monocytes % 3 % Eosinophils % 1 % Basophils % 0 % Neutrophils # 9.4 H (1.3-7.7) k/uL Lymphocytes # 1.9 (1.0-4.8) k/uL Monocytes # 0.3 (0-1.0) k/uL Eosinophils # 0.1 (0-0.7) k/uL Basophils # 0.0 (0-0.2) k/uL PT 10.1 (9.0-12.0) sec INR 1.0 (<1.2) APTT 26.4 (22.0-30.0) sec Sodium 133 L (137-145) mmol/L Potassium 4.2 (3.5-5.1) mmol/L Chloride 106 (98-107) mmol/L Carbon Dioxide 19 L (22-30) mmol/L Anion Gap 8 mmol/L BUN 10 (7-17) mg/dL Creatinine 0.51 L (0.52-1.04) mg/dL Est GFR (CKD-EPI)AfAm >90 (>60 ml/min/1.73 sqM) Est GFR (CKD-EPI)NonAf >90 (>60 ml/min/1.73 sqM) Glucose 102 H (74-99) mg/dL Calcium 9.0 (8.4-10.2) mg/dL - Radiology Data Radiology results: report reviewed Negative CT angiogram of the brain. The CT brain. No change. Disposition Clinical Impression: Headache, Hypertension Disposition: HOME SELF-CARE Condition: Good Instructions (If sedation given, give patient instructions): Migraine Headache (ED), Hypertension (ED) Additional Instructions: Patient advised to follow-up with primary care physician for recheck for blood pressures. Patient can use medication as prescribed for nausea. Rest. Return to the ED if any alarming signs or symptoms occur. Prescriptions: Ondansetron Odt [Zofran Odt] 4 mg PO Q8HR PRN #12 tab PRN Reason: Nausea Is patient prescribed a controlled substance at d/c from ED?: No Referrals: Jovany Carey MD [Primary Care Provider] - 1-2 days Time of Disposition: 18:59
[2020-01-09 17:40] LABS: African American GFR (CKD) >90 (>60 ml/min/1.73 sqM); Anion Gap 8 mmol/L; Blood Urea Nitrogen 10 mg/dL (7-17); Carbon Dioxide 19 mmol/L (22-30); Chloride 106 mmol/L (98-107); Glucose 102 mg/dL (74-99); Non-African American GFR(CKD) >90 (>60 ml/min/1.73 sqM); Partial Thromboplastin Time 26.4 sec (22.0-30.0); Potassium 4.2 mmol/L (3.5-5.1); Prothrombin Time 10.1 sec (9.0-12.0); Sodium 133 mmol/L (137-145)
--- NOTE | 2020-01-09 18:05 | CT ---
EXAMINATION TYPE: CT brain wo con DATE OF EXAM: 01/09/2020 COMPARISON: 10/11/2015 HISTORY: DARBY, nausea, hypertension CT DLP: 1160 mGycm Automated exposure control for dose reduction was used. Ventricles have normal size. There is no mass effect nor midline shift. There is no sign of intracran ial hemorrhage. The calvarium is intact. There is no evidence of cerebral edema. IMPRESSION: Negative CT scan of the brain. No change.
--- NOTE | 2020-01-09 18:09 | CT ---
EXAMINATION TYPE: CT angio head DATE OF EXAM: 01/09/2020 COMPARISON: None HISTORY: DARBY, nausea, hypertension CT DLP: 1014.7 mGycm Automated exposure control for dose reduction was used. CONTRAST: Performed with IV Contrast, patient injected with 100 mL of Isovue 370. There are 3-D post processed images. There is arterial flow in the anterior middle and posterior cerebral arteries. There is arterial flow in the vertebrobasilar artery system. There is normal contrast opacification of the venous sinuses. There is no evidence of intracranial arterial stenosis. I see no evidence of aneurysm or neovasculari ty. There is no mass effect. There is no evidence of arterial dissection. There is arterial flow in b oth internal carotid arteries. Right posterior cerebral artery appears to fill significantly from the right posterior communicating artery. IMPRESSION: Negative CT angiogram of the brain.
[2020-01-09] MEDS ORDERED: KETOROLAC 15 MG/ML 1 ML VIAL IVP STA (18:35)
[2020-01-09 18:54] VITALS: BP 171/93; PULSE 88
== END 2020-01-09 19:11 | disposition home or self-care (01) ==
LOC: EC 16:44
DX: G43.909 Migraine, unspecified, not intractable, without status migrainosus (principal); I10 Essential (primary) hypertension; F41.9 Anxiety disorder, unspecified; F17.200 Nicotine dependence, unspecified, uncomplicated; Z79.899 Other long term (current) drug therapy
CPT/HCPCS: 36415; 80048; 85025; 85610; 85730; 70496; 70450; 99284; 96374; 96375 ×2; 96361; J1200; J2360; J2765; Q9967

== ENCOUNTER 2020-09-19 21:23 | Emergency (ER) | payer OTHER ==
[2020-09-19 21:43] VITALS: TEMP 98.1
[2020-09-19] MEDS ORDERED: cloNIDine HCL 0.2 MG TAB PO STA (21:56)
[2020-09-19] MEDS ORDERED: IBUPROFEN 400 MG TAB PO STA (21:57)
[2020-09-19] MEDS ORDERED: methocarbamoL 750 MG TAB PO STA (21:57)
[2020-09-19] MEDS ORDERED: predniSONE 20 MG TAB PO STA (21:57)
--- NOTE | 2020-09-19 22:00 | ED ---
General Adult HPI - General Chief complaint: Recheck/Abnormal Lab/Rx Stated complaint: Elevated BP, Dizziness Time Seen by Provider: 09/19/20 21:46 Source: patient Mode of arrival: wheelchair Limitations: no limitations - History of Present Illness Initial comments: This patient is a 40-year-old woman with history of hypertension and also of chronic neck and back pain. The patient states that she is here because she had been having a flareup of her neck and back pain and she states that it's bleeding her blood pressure be elevated. Patient works in a [employer] and has been doing a lot of lifting as there shortstaffed. She indicates the muscles of the right side of the neck and shoulder. Patient took her blood pressure at home and it was about 210/150. She states that she is currently not taking blood pressure medication though it has been elevated in the past. She states that she also is quite susceptible to stress and this will elevate her blood pressure. When the blood pressure did not go down and she was feeling somewhat dizzy and having a bit of mild headache she presented here for evaluation. The patient states she would like to try oral medications Onset/Timin -: days(s) Location: neck, right, upper extremity Radiation: extremity Consistency: constant Improves with: none Worsens with: movement Associated Symptoms: denies other symptoms Treatments Prior to Arrival: none - Related Data Home Medications Medication Instructions Recorded Confirmed Gabapentin [Neurontin] 300 mg PO TID 06/15/18 09/19/20 traMADol HCL [Ultram] 50 mg PO BID PRN 09/07/18 09/19/20 Dextroamphetamine/Amphetamine 30 mg PO BID 09/19/20 09/19/20 [Adderall] Norgestimate-Ethinyl Estradiol 1 tab PO DAILY 09/19/20 09/19/20 [Tri-Sprintec Tablet] busPIRone HCl [Buspar] 10 mg PO BID 09/19/20 09/19/20 Previous Rx's Medication Instructions Recorded Lisinopril [Prinivil] 10 mg PO DAILY #30 tab 09/20/20 Methocarbamol [Robaxin-750] 750 mg PO TID PRN #30 tablet 09/20/20 amLODIPine [Norvasc] 5 mg PO DAILY #30 tab 09/20/20 Allergies Allergy/AdvReac Type Severity Reaction Status Date / Time No Known Allergies Allergy Verified 09/19/20 22:28 Review of Systems ROS Statement: Those systems with pertinent positive or pertinent negative responses have been documented in the HPI. ROS Other: All systems not noted in ROS Statement are negative. Constitutional: Denies: fever, chills Eyes: Denies: eye pain, vision change Respiratory: Denies: cough, dyspnea Cardiovascular: Denies: chest pain, palpitations, edema Gastrointestinal: Denies: abdominal pain, nausea, vomiting Genitourinary: Denies: dysuria Musculoskeletal: Reports: as per HPI, myalgia. Denies: back pain Skin: Denies: rash Neurological: Reports: headache, vertigo. Denies: weakness, numbness, paresthesias Past Medical History Past Medical History: Hypertension Additional Past Medical History / Comment(s): back pain, migraines History of Any Multi-Drug Resistant Organisms: None Reported Past Surgical History: Cholecystectomy Past Psychological History: Anxiety Smoking Status: Current every day smoker Past Alcohol Use History: Rare Past Drug Use History: None Reported General Exam Limitations: no limitations General appearance: alert, in no apparent distress Head exam: Present: atraumatic, normocephalic Eye exam: Present: normal appearance, PERRL, EOMI. Absent: scleral icterus, conjunctival injection, nystagmus ENT exam: Present: normal oropharynx Neck exam: Present: normal inspection, full ROM. Absent: tenderness, meningismus Respiratory exam: Present: normal lung sounds bilaterally. Absent: respiratory distress, wheezes, rales, rhonchi, stridor Cardiovascular Exam: Present: regular rate, normal rhythm, normal heart sounds. Absent: systolic murmur, diastolic murmur, rubs, gallop GI/Abdominal exam: Present: soft. Absent: distended, tenderness, guarding Extremities exam: Present: normal inspection, normal capillary refill. Absent: pedal edema, calf tenderness Back exam: Present: normal inspection, muscle spasm, paraspinal tenderness, other (There is muscular spasm and tenderness of the right trapezius, As noted and supraspinatus muscles.). Absent: CVA tenderness (R), CVA tenderness (L) Neurological exam: Present: alert, oriented X3, CN II-XII intact. Absent: motor sensory deficit Skin exam: Present: warm, dry, intact, normal color. Absent: rash Course Vital Signs 05/09/19/20 09/20/20 21:38 23:46 00:51 Temperature 98.1 F Pulse Rate 107 H 91 88 Respiratory 18 22 20 Rate Blood Pressure 191/115 233/133 199/111 O2 Sat by Pulse 99 98 99 Oximetry Medical Decision Making - Medical Decision Making This patient is a 40-year-old woman presenting with shoulder/neck pain on the right side that is reproduced on the exam by palpation. There is also palpable spasm present. I discussed the importance of controlling her blood pressure with the patient. She will follow with her physician to ensure that this is coming down. Patient states that she does seem very susceptible distress and there is no a lot of stress at work. Patient instructed to return here should there be any problem with following up. At this point she did want to restart medical therapy, and that she was previously taking lisinopril and amlodipine. Disposition Clinical Impression: Hypertension Disposition: HOME SELF-CARE Condition: Good Instructions (If sedation given, give patient instructions): Muscle Strain (ED), Hypertension (ED) Prescriptions: amLODIPine [Norvasc] 5 mg PO DAILY #30 tab Lisinopril [Prinivil] 10 mg PO DAILY #30 tab Methocarbamol [Robaxin-750] 750 mg PO TID PRN #30 tablet PRN Reason: pain Is patient prescribed a controlled substance at d/c from ED?: No Referrals: Jovany Carey MD [Primary Care Provider] - 1-2 days
[2020-09-20 00:53] VITALS: RESP 20
[2020-09-20] MEDS ORDERED: MORPHINE SULFATE 4 MG/ML SYRINGE IM STA (00:58)
[2020-09-20] MEDS ORDERED: METOPROLOL TARTRATE 25 MG TAB PO STA (00:59)
[2020-09-20 01:28] VITALS: BP 191/114; PULSE 89
== END 2020-09-20 01:24 | disposition home or self-care (01) ==
LOC: EC 21:23
DX: I10 Essential (primary) hypertension (principal); F17.200 Nicotine dependence, unspecified, uncomplicated
CPT/HCPCS: 99283; 96372; J2270; J7512

== ENCOUNTER → 2023-11-04 | Outpatient (CLI) | payer OTHER ==
[2023-11-04 09:47] LABS: Basophils # (A) 0.1 k/uL (0-0.2); Basophils % (A) 1 %; Eosinophils # (A) 0.1 k/uL (0-0.7); Eosinophils % (A) 1 %; HGB 12.7 gm/dL (11.4-16.0); Lymphocytes # (A) 2.8 k/uL (1.0-4.8); Lymphocytes % (A) 26 %; MCH 28.5 pg (25.0-35.0); MCHC 31.9 g/dL (31.0-37.0); MCV 89.3 fL (80.0-100.0); Mean Platelet Volume 7.9; Monocytes # (A) 0.6 k/uL (0-1.0); Monocytes % (A) 6 %; Neutrophils % (A) 65 %; Platelet Count 396 k/uL (150-450); RBC 4.48 m/uL (3.80-5.40); RDW 13.4 % (11.5-15.5); WBC 10.8 k/uL (3.8-10.6)
[2023-11-04 16:05] LABS: ALT 78 U/L (8-44); AST 55 U/L (13-35); Albumin 4.1 g/dL (3.8-4.9); Albumin/Globulin Ratio 1.52 Ratio (1.60-3.17); Alkaline Phosphatase 132 U/L (41-126); BUN/Creat Ratio 12.75 Ratio (12.00-20.00); Blood Urea Nitrogen 10.2 mg/dL (9.0-27.0); Calcium 9.3 mg/dL (8.7-10.3); Carbon Dioxide 23.8 mmol/L (21.6-31.8); Chloride 103 mmol/L (96-109); Chol/HDL Ratio 4.33 Ratio; Globulin 2.7 g/dL (1.6-3.3); Glucose 89 mg/dL (70-110); LDL Cholesterol,Calculated 116.3 mg/dL (0.0-131.0); Potassium 4.4 mmol/L (3.5-5.5); Sodium 139 mmol/L (135-145); Total Bilirubin 0.2 mg/dL (0.3-1.2); Total Protein 6.8 g/dL (6.2-8.2)
== END | disposition home or self-care (01) ==
LOC: LABWHC1 08:43
PROVIDERS: ATTEND Family Medicine
DX: Z13.220 Encounter for screening for lipoid disorders (principal); I10 Essential (primary) hypertension
CPT/HCPCS: 36415; 80053; 80061; 85025